=== PATIENT | female | born 1955 | race Caucasian/White ===

== ENCOUNTER 2018-10-12 08:57 | Inpatient (IN) | payer OTHER ==
[2018-10-12] MEDS ORDERED: ONDANSETRON 4 MG/2 ML VIAL ONE (09:12)
[2018-10-12] MEDS ORDERED: NITROGLYCERIN 0.4 MG/TAB SL ONE (09:15)
[2018-10-12] MEDS ORDERED: NITROGLYCERIN/D5W 0 MG/0 ML BTL IV ONE (09:15)
[2018-10-12 09:19] LABS: Absolute Lymphocytes (CBC) 4.2 K/uL (0.7-4.9); Absolute Monocytes 0.6 K/uL (0.1-1.3); Absolute Neutrophil 6.5 K/uL (1.8-8.0); Basophils % 2.2 % (0-1.3); Hematocrit 44.1 % (36.0-45.0); Lymphocytes % 35.5 % (15.3-44.8); MPV 8.6 fL (7.6-11.3); Monocytes % 5.3 % (3.3-12.3)
[2018-10-12 09:23] LABS: Arterial Blood Carboxyhemoglob 6.8 % (0-1.5); Blood Gas Oxyhemoglobin 83.8 % (94-97)
[2018-10-12] MEDS ORDERED: FUROSEMIDE 20 MG/ 2ML VIAL ONE (09:25)
[2018-10-12] MEDS ORDERED: FUROSEMIDE 40 MG/4 ML VIAL ONE (09:25)
[2018-10-12 09:26] LABS: Protime INR 0.92
[2018-10-12 09:43] LABS: ALT/SGPT 23 U/L (12-78); AST/SGOT 26 U/L (15-37); Albumin 4.2 g/dL (3.4-5.0); Alkaline Phosphatase 220 U/L (45-117); BUN Blood Urea Nitrogen 6 mg/dL (7-18); Bicarbonate 25 mmol/L (21-32); Bilirubin Direct 0.3 mg/dL (0-0.2); Bilirubin Total 1.3 mg/dL (0.2-1.0); Glucose Level 361 mg/dL (74-106); Magnesium 2.2 mg/dL (1.8-2.4); NT PRO-BNP 354 pg/mL (<125); Potassium 3.4 mmol/L (3.5-5.1); Protein, Total 8.8 g/dL (6.4-8.2); Sodium Level 135 mmol/L (136-145); Troponin (Emerg Dept Use Only) < 0.02 ng/mL (0.0-0.045)
[2018-10-12] MEDS ORDERED: INSULIN -REGULAR HUMAN 50 UNIT/0.5 ML ML ONE (10:22)
--- NOTE | 2018-10-12 10:43 | EKG ---
Test Date: 2018-10-12 Test Time: 08:58:42 Telecom Analyst: ELOY MEASUREMENT RESULTS: Intervals: Rate: 135 MS: 104 QRSD: 82 QT: 374 QTc: 561 [place]: P: MS: 104 QRS: 17 T: 57 INTERPRETIVE STATEMENTS: Sinus tachycardia with short MS ST & T wave abnormality, consider lateral ischemia Abnormal ECG Compared to ECG 06/04/2015 04:02:11 Short MS interval now present Myocardial infarct finding no longer present ST (T wave) deviation still present Possible ischemia still present Electronically Signed On 10-12-18 10:42:41 MARKER [employer]IPMENTS by Rj Roman
--- NOTE | 2018-10-12 10:56 | EDPHYS ---
Physician Documentation [facility] Name: Brie Chiang Age: 63 yrs Sex: Female : 1955 Arrival Date: 10/12/2018 Time: 09:00 Bed 5 Private MD: ED Physician Vitaliy Matthews HPI: 10/12 10:38 This 63 yrs old Female presents to ER via Wheelchair with complaints of Chest jr8 Pain. 10:38 Onset: The symptoms/episode began/occurred acutely. The patient or guardian reports jr8 chest pain that is located primarily in the substernal area. The pain does not radiate. Associated signs and symptoms: Pertinent positives: diaphoresis, vomiting, shortness of breath. Severity of symptoms: At their worst the symptoms were severe in the emergency department the symptoms are unchanged. It is unknown whether or not the patient has had similar symptoms in the past. The patient has not recently seen a physician. Patient had to be assisted from vehicle upon arrival. Patient in respiratory distress and complaining of pain to chest . Historical: - Allergies: 09:13 Niacin; iw 09:13 Iodine; iw 09:13 Codeine; iw - Home Meds: 10:40 Digoxin Oral [Active]; carvedilol oral oral [Active]; Isosorbide Mononitrate Oral aa5 [Active]; Plavix Oral [Active]; levothyroxine oral [Active]; Furosemide Oral [Active]; - PMHx: 09:15 CHF; Myocardial infarction; Diabetes - IDDM; iw - Immunization history:: Pneumococcal vaccine is up to date, Flu vaccine is not up to date. - Ebola Screening: : Patient negative for fever greater than or equal to 101.5 degrees Fahrenheit, and additional compatible Ebola Virus Disease symptoms Patient denies exposure to infectious person Patient denies travel to an Ebola-affected area in the 21 days before illness onset No symptoms or risks identified at this time. - Social history:: Smoking status: Patient uses tobacco products, smokes one pack cigarettes per day. ROS: 10:38 Eyes: Negative for injury, pain, redness, and discharge, ENT: Negative for injury, jr8 pain, and discharge, Neck: Negative for injury, pain, and swelling, Abdomen/GI: Negative for abdominal pain, nausea, vomiting, diarrhea, and constipation, Back: Negative for injury and pain, MS/Extremity: Negative for injury and deformity, Skin: Negative for injury, rash, and discoloration, Neuro: Negative for headache, weakness, numbness, tingling, and seizure. 10:38 Cardiovascular: Positive for chest pain, Negative for edema, orthopnea, palpitations, paroxysmal nocturnal dyspnea. 10:38 Respiratory: Positive for dyspnea on exertion, shortness of breath. Exam: 10:38 Eyes: Pupils equal round and reactive to light, extra-ocular motions intact. Lids and jr8 lashes normal. Conjunctiva and sclera are non-icteric and not injected. Cornea within normal limits. Periorbital areas with no swelling, redness, or edema. ENT: Nares patent. No nasal discharge, no septal abnormalities noted. Tympanic membranes are normal and external auditory canals are clear. Oropharynx with no redness, swelling, or masses, exudates, or evidence of obstruction, uvula midline. Mucous membranes moist. Neck: Trachea midline, no thyromegaly or masses palpated, and no cervical lymphadenopathy. Supple, full range of motion without nuchal rigidity, or vertebral point tenderness. No Meningismus. Abdomen/GI: Soft, non-tender, with normal bowel sounds. No distension or tympany. No guarding or rebound. No evidence of tenderness throughout. Back: No spinal tenderness. No costovertebral tenderness. Full range of motion. MS/ Extremity: Pulses equal, no cyanosis. Neurovascular intact. Full, normal range of motion. Neuro: Awake and alert, GCS 15, oriented to person, place, time, and situation. Cranial nerves II-XII grossly intact. Motor strength 5/5 in all extremities. Sensory grossly intact. Cerebellar exam normal. Normal gait. 10:38 Constitutional: The patient appears alert, awake, obviously ill. 10:38 Cardiovascular: Rate: tachycardic, Rhythm: regular, Pulses: Pulses are 2+ in right radial artery and left radial artery. Heart sounds: normal, normal S1and S2, no S3 or S4, no murmur, no rub, no gallop, Edema: is not appreciated. 10:38 Respiratory: moderate respiratory distress is noted, Respirations: tachypnea, Breath sounds: rales, that are moderate, are heard in the right upper lobe, right middle lobe, right posterior upper lobe and right posterior middle lobe, Respiratory rate: 26 10:38 Skin: Appearance: Color: dusky, Temperature: cool, Moisture: diaphoretic. Vital Signs: 09:00 BP 181 / 117; Pulse 133; Resp 30 S; Pulse Ox 80% on R/A; iw 09:03 BP 156 / 92; Pulse 128; Resp 30 S; Temp 97.2(TE); Pulse Ox 89% on 4 lpm NC; aa5 09:08 BP 118 / 72; Pulse 128; Resp 28 S; Pulse Ox 92% on BiPAP; aa5 09:25 BP 117 / 76; Pulse 118; Resp 26 A; Pulse Ox 95% on BiPAP; aa5 09:45 BP 124 / 72; Pulse 103; Resp 19; Pulse Ox 100% on BiPAP; ca1 10:15 BP 124 / 72; Pulse 100; Resp 16; Pulse Ox 100% on BiPAP; ca1 10:45 BP 92 / 56; Pulse 97; Resp 19; Pulse Ox 100% on BiPAP; ca1 10:49 Weight 77.11 kg; Height 5 ft. 6 in. (167.64 cm); ca1 11:15 BP 89 / 63; Pulse 100; Resp 18; Pulse Ox 100% on BiPAP; ca1 12:30 BP 143 / 64; Pulse 88; Resp 18; Pulse Ox 100% on BiPAP; ca1 13:00 BP 131 / 60; Pulse 90; Resp 19; Pulse Ox 100% on Non-rebreather mask; ca1 13:30 BP 128 / 65; Pulse 87; Resp 18; Pulse Ox 100% on 2 lpm NC; ca1 14:00 BP 120 / 59; Pulse 84; Resp 18; Pulse Ox 100% on 2 lpm NC; ca1 14:45 BP 124 / 65; Pulse 84; Resp 18; Pulse Ox 100% on R/A; ca1 14:45 BP 115 / 71; Pulse 96; Resp 18; Pulse Ox 100% on 2 lpm NC; ca1 10:49 Body Mass Index 27.44 (77.11 kg, 167.64 cm) ca1 MDM: 09:11 Patient medically screened. jr8 10:38 Data reviewed: vital signs, nurses notes, lab test result(s), EKG, radiologic studies, jr8 CT scan, plain films. Data interpreted: Pulse oximetry: on room air is 80 %. Interpretation: hypoxia. Plan: O2 by Mask applied. Counseling: I had a detailed discussion with the patient and/or guardijean marie regarding: the historical points, exam findings, and any diagnostic results supporting the discharge/admit diagnosis, lab results, radiology results, the need for further work-up and treatment in the hospital. ED course: Discussed case with Dr. Kaplan and will be admitted to ICU for further evaluation of pneumonia and acute respiratory failure . 10/12 09:05 Order name: Basic Metabolic Panel; Complete Time: 10:20 iw 10/12 09:05 Order name: CBC with Diff; Complete Time: 10:20 10/12 09:05 Order name: LFT's; Complete Time: 10:10/12 09:05 Order name: Magnesium; Complete Time: 10:10/12 09:05 Order name: NT PRO-BNP; Complete Time: 10:10/12 09:05 Order name: PT-INR; Complete Time: 10: 10/12 09:05 Order name: Troponin (emerg Dept Use Only); Complete Time: 10: 10/12 09:12 Order name: ABG; Complete Time: 10: 10/12 09:13 Order name: Glucose, Ancillary Testing; Complete Time: 09:15 EDMS 10/12 10:02 Order name: Urine Dipstick--Ancillary (enter results); Complete Time: 11:37 eb 10/12 10:23 Order name: Blood Culture Adult (2) 10/12 10:23 Order name: Lactate; Complete Time: 11:28 10/12 10:23 Order name: Procalcitonin; Complete Time: 12:21 [facility] 10/12 11:13 Order name: Ptt, Activated; Complete Time: 11:50 ca1 10/12 09:05 Order name: XRAY Chest (1 view); Complete Time: 11:18 iw 10/12 09:12 Order name: BIPAP 10/12 10:57 Order name: Echo w/ Doppler 10/12 11:00 Order name: US Extremity Venous W Compression Aroldo; Complete Time: 13:10 10/12 12:28 Order name: CT Chest Wo Con; Complete Time: 13:21 10/12 14:35 Order name: Lactate aa5 10/12 15:04 Order name: Glucose, Ancillary Testing; Complete Time: 15:06 EDMS 10/12 15:04 Order name: Glucose, Ancillary Testing; Complete Time: 15:06 EDMS 10/12 15:32 Order name: Urine Microscopic Only eb 10/12 15:53 Order name: Lactate; Complete Time: 15:55 EDMS 10/12 09:05 Order name: EKG; Complete Time: 09:07 iw 10/12 09:05 Order name: Cardiac monitoring; Complete Time: 09:16 iw 10/12 09:05 Order name: EKG - Nurse/Tech; Complete Time: 09:16 iw 10/12 09:05 Order name: IV Saline Lock; Complete Time: 09:16 iw 10/12 09:05 Order name: Labs collected and sent; Complete Time: 09:16 iw 10/12 09:05 Order name: O2 Per Protocol; Complete Time: 09:16 iw 10/12 09:05 Order name: O2 Sat Monitoring; Complete Time: 09:16 iw 10/12 13:48 Order name: Diet Ada 1800 Roni; Complete Time: 13:49 iw Administered Medications: 09:00 Drug: Zofran 4 mg {Note: administered by JOSSELYN Saleh} Route: IVP; Site: right aa5 antecubital; 18:44 Follow up: Response: No adverse reaction; Nausea is decreased ca1 09:03 Drug: Nitroglycerin 0.4 mg {Note: VO received at 0901.} Route: Sublingual; [facility] 11:00 Follow up: Response: No adverse reaction; Pain is decreased ca1 09:25 Drug: Lasix 60 mg Route: IVP; Site: right antecubital; ca1 18:45 Follow up: Urine output 1900 ml; Response: No adverse reaction ca1 10:15 Drug: Insulin Regular Human 10 units {Co-Signature: ca1 (Edith Portillo RN).} Route: IVP; aa5 Site: right antecubital; 13:00 Follow up: Response: No adverse reaction; Blood sugar is lowered ca1 11:20 Drug: NS 0.9% (30 ml/kg) 30 ml/kg Route: IV; Rate: bolus; Site: right antecubital; ca1 15:00 Follow up: IV Status: Completed infusion ca1 11:22 Drug: LevaQUIN 750 mg Volume: 150 ml; Route: IVPB; Infused Over: 90 mins; Site: right ca1 antecubital; 13:00 Follow up: Response: No adverse reaction; IV Status: Completed infusion ca1 11:40 Drug: Heparin (DVT/PE- Bolus per protocol) - HEParin 80 units/kg {Co-Signature: aa5 ca1 (Linsey Sanders RN).} Route: IVP; Site: left antecubital; 18:39 Follow up: Response: No adverse reaction ca1 11:42 Drug: Heparin (DVT/PE Drip) 18 units/kg/hr - (HEParin 60665 units, D5W 500 ml) ca1 {Co-Signature: aa5 (Linsey Sanders RN).} Route: IV; Rate: calculated rate; Site: left antecubital; 15:00 Follow up: IV Status: Infusion continued upon admission ca1 12:00 Drug: Valium 2 mg Route: IVP; Site: right antecubital; ca1 15:47 Follow up: Response: No adverse reaction; Anxiety decreased ca1 Point of Care Testing: Blood Glucose: 10:47 Blood Glucose: 349 mg/dL; dh3 15:00 Blood Glucose: 286 mg/dL; ca1 Ranges: Critical Glucose Levels:Adult <50 mg/dl or >400 mg/dl <40 mg/dl or >180 mg/dl Disposition: 14:14 Critical Care:. jr8 19:04 Co-signature as Attending Physician, Vitaliy Matthews MD I agree with the assessment and kdr plan of care. Disposition: 10/12/18 10:55 Hospitalization ordered by Edouard Kaplan for Inpatient Admission. Preliminary diagnosis are Acute systolic (congestive) heart failure, Pneumonia due to other specified bacteria, Acute respiratory failure, Hypoxemia. - Bed requested for Intensive Care Unit. - Status is Inpatient Admission. iw - Condition is Fair. - Problem is new. - Symptoms have improved. UTI on Admission? No Critical care time excluding procedures: 14:14 Critical care time: Bedside Care: 20 minutes, Consultation: 15 minutes. Total time: 35 jr8 minutes Signatures: Dispatcher [employer] EDMS Vitaliy Matthews MD MD [facility] Aviva Pacheco RN RN iw Linsey Sanders RN RN aa5 Carlos Delgado PA PA jr8 Juliette Mcknight Cheryl, RN RN ca1 Edith Portillo RN ca1 Linsey Sanders RN aa5 Corrections: (The following items were deleted from the chart) 10:59 10:54 Thorax Wo Con+CT.RAD.BRZ ordered. [facility] EDMS 11:08 10:26 Chest For PE Angio+CT.RAD.BRZ ordered. [facility] EDMS 13:59 10:55 Hospitalization Ordered by Edouard Kaplan DO for Inpatient Admission. Preliminary eb diagnosis is Acute systolic (congestive) heart failure; Pneumonia due to other specified bacteria; Acute respiratory failure; Hypoxemia. Bed requested for Intensive Care Unit. Status is Inpatient Admission. Condition is Fair. Problem is new. Symptoms have improved. UTI on Admission? No. jr8 16:38 13:59 10/12/2018 10:55 Hospitalization Ordered by Edouard Kaplan DO for Inpatient iw Admission. Preliminary diagnosis is Acute systolic (congestive) heart failure; Pneumonia due to other specified bacteria; Acute respiratory failure; Hypoxemia. Bed requested for Intensive Care Unit. Status is Inpatient Admission. Condition is Fair. Problem is new. Symptoms have improved. UTI on Admission? No. eb
--- NOTE | 2018-10-12 10:56 | ER ---
Nurse's Notes [facility] Name: Brie Chiang Age: 63 yrs Sex: Female : 1955 Arrival Date: 10/12/2018 Time: 09:00 Bed 5 Private MD: Diagnosis: Acute systolic (congestive) heart failure;Pneumonia due to other specified bacteria;Acute respiratory failure;Hypoxemia Presentation: 10/12 08:55 Presenting complaint: Patient states: sudden onset of chest pain and SOB X 10 minutes, iw pt arrives to ER, pale, diaphoretic, TX=603, 80% on RA. Transition of care: patient was not received from another setting of care. Onset of symptoms was October 12, 2018. Risk Assessment: Do you want to hurt yourself or someone else? Patient reports no desire to harm self or others. Initial Sepsis Screen: Does the patient meet any 2 criteria? RR > 20 per min. HR > 90 bpm. Does the patient have a suspected source of infection? No. Patient's initial sepsis screen is negative. Care prior to arrival: None. 08:55 Method Of Arrival: Wheelchair iw 08:55 Acuity: SUSSY 1 iw Historical: - Allergies: 09:13 Niacin; iw 09:13 Iodine; iw 09:13 Codeine; iw - Home Meds: 10:40 Digoxin Oral [Active]; carvedilol oral oral [Active]; Isosorbide Mononitrate Oral aa5 [Active]; Plavix Oral [Active]; levothyroxine oral [Active]; Furosemide Oral [Active]; - PMHx: 09:15 CHF; Myocardial infarction; Diabetes - IDDM; iw - Immunization history:: Pneumococcal vaccine is up to date, Flu vaccine is not up to date. - Ebola Screening: : Patient negative for fever greater than or equal to 101.5 degrees Fahrenheit, and additional compatible Ebola Virus Disease symptoms Patient denies exposure to infectious person Patient denies travel to an Ebola-affected area in the 21 days before illness onset No symptoms or risks identified at this time. - Social history:: Smoking status: Patient uses tobacco products, smokes one pack cigarettes per day. Screenin:15 Abuse screen: Denies threats or abuse. Denies injuries from another. Nutritional ca1 screening: No deficits noted. Tuberculosis screening: No symptoms or risk factors identified. Fall Risk None identified. Assessment: 09:00 General: Appears distressed, comfortable, Behavior is calm, cooperative, appropriate ca1 for age. Pain: Complains of pain in chest Pain does not radiate. Pain currently is 9 out of 10 on a pain scale. Pain began 30 min ago. Neuro: Level of Consciousness is awake, alert, obeys commands, Oriented to person, place, time, situation. Cardiovascular: Heart tones S1 S2 present Capillary refill is > 3 seconds Rhythm is sinus tachycardia. Respiratory: Reports shortness of breath Airway is patent Trachea midline Respiratory effort is even, labored, Respiratory pattern is hyperventilation Breath sounds are coarse in right middle lobe Breath sounds are diminished in left upper lobe Denies cough. GI: Abdomen is round non-distended, Bowel sounds present X 4 quads. Abd is soft and non tender X 4 quads. Reports nausea. : No signs and/or symptoms were reported regarding the genitourinary system. EENT: No signs and/or symptoms were reported regarding the EENT system. Derm: Skin is intact, Skin is diaphoretic, Skin is pale, Skin temperature is cool. Musculoskeletal: Circulation, motion, and sensation intact. 09:04 Reassessment: Pt placed on Bi-PAP by RT per JOSSELYN Tejada VO. aa5 10:05 Reassessment:. Reassessment: Patient appears in no apparent distress at this time. ca1 Patient and/or family updated on plan of care and expected duration. Pain level reassessed. Derm: Skin is pink, warm \T\ dry. 10:15 Reassessment: Instructed on Strict Bed rest. ca1 11:50 Reassessment: US at bedside. Reassessment:. ca1 12:55 Reassessment: Patient appears in no apparent distress at this time. To CT scan with ca1 Non-rebreather mask, Tolerated well, states feeling better. Off Bipap, RT and PA informed, pt tolerated well. 13:33 Reassessment: Patient appears in no apparent distress at this time. Patient and/or ca1 family updated on plan of care and expected duration. Pain level reassessed. Patient is alert, oriented x 3, equal unlabored respirations, skin warm/dry/pink. Patient on O2 at 2LPM via NC, patient tolerated well. Expressed feeling better. 14:31 Reassessment: Patient appears in no apparent distress at this time. Patient and/or ca1 family updated on plan of care and expected duration. Pain level reassessed. Patient is alert, oriented x 3, equal unlabored respirations, skin warm/dry/pink. 15:35 Reassessment: Patient appears in no apparent distress at this time. Patient is alert, ca1 oriented x 3, equal unlabored respirations, skin warm/dry/pink. Patient eating on bed. Vital Signs: 09:00 BP 181 / 117; Pulse 133; Resp 30 S; Pulse Ox 80% on R/A; iw 09:03 BP 156 / 92; Pulse 128; Resp 30 S; Temp 97.2(TE); Pulse Ox 89% on 4 lpm NC; aa5 09:08 BP 118 / 72; Pulse 128; Resp 28 S; Pulse Ox 92% on BiPAP; aa5 09:25 BP 117 / 76; Pulse 118; Resp 26 A; Pulse Ox 95% on BiPAP; aa5 09:45 BP 124 / 72; Pulse 103; Resp 19; Pulse Ox 100% on BiPAP; ca1 10:15 BP 124 / 72; Pulse 100; Resp 16; Pulse Ox 100% on BiPAP; ca1 10:45 BP 92 / 56; Pulse 97; Resp 19; Pulse Ox 100% on BiPAP; ca1 10:49 Weight 77.11 kg; Height 5 ft. 6 in. (167.64 cm); ca1 11:15 BP 89 / 63; Pulse 100; Resp 18; Pulse Ox 100% on BiPAP; ca1 12:30 BP 143 / 64; Pulse 88; Resp 18; Pulse Ox 100% on BiPAP; ca1 13:00 BP 131 / 60; Pulse 90; Resp 19; Pulse Ox 100% on Non-rebreather mask; ca1 13:30 BP 128 / 65; Pulse 87; Resp 18; Pulse Ox 100% on 2 lpm NC; ca1 14:00 BP 120 / 59; Pulse 84; Resp 18; Pulse Ox 100% on 2 lpm NC; ca1 14:45 BP 124 / 65; Pulse 84; Resp 18; Pulse Ox 100% on R/A; ca1 14:45 BP 115 / 71; Pulse 96; Resp 18; Pulse Ox 100% on 2 lpm NC; ca1 10:49 Body Mass Index 27.44 (77.11 kg, 167.64 cm) ca1 ED Course: 09:00 Patient arrived in ED. aa5 09:00 Inserted saline lock: 20 gauge in right antecubital area, using aseptic technique. aa5 ,using aseptic technique. Inserted by JOSSELYN Saleh. 09:04 Triage completed. iw 09:05 Initial lab(s) drawn, by ED staff, sent to lab. aa5 09:11 Carlos Delgado PA is PHCP. jr8 09:11 Vitaliy Matthews MD is Attending Physician. jr8 09:15 Arm band placed on right wrist. ca1 09:17 Patient has correct armband on for positive identification. Placed in gown. Bed in low iw position. Call light in reach. Side rails up X2. cable maker on. Pulse ox on. NIBP on. 09:20 Warm blanket given. Head of bed elevated. ca1 09:24 EKG done, by ED staff, reviewed by Carlos ARCOS. at1 09:28 Edith Portillo RN is Primary Nurse. ca1 09:50 Caldwell cath inserted, using sterile technique, 16 Fr., by me, balloon inflated, to ca1 gravity drainage, clamped. urine specimen collected. returned rebeca urine. Patient tolerated well. 10:06 X-ray completed. Portable x-ray completed in exam room. Patient tolerated procedure jb2 well. 10:08 XRAY Chest (1 view) In Process Unspecified. EDMS 10:45 lactate and pct drawn by me and sent to lab by venipuncture 23G to right forearm. dh3 Second set of blood cultures drawn by me. 10:55 Edouard Kaplan DO is Hospitalizing Provider. jr8 12:26 US Extremity Venous W Compression Aroldo In Process Unspecified. EDMS 12:57 CT Chest Wo Con In Process Unspecified. EDMS 15:56 No provider procedures requiring assistance completed. Patient admitted, IV remains in ca1 place. Oxygen administration via nasal cannula \T\ 2L/min Response to oxygen therapy: symptoms improved. Administered Medications: 09:00 Drug: Zofran 4 mg {Note: administered by JOSSELYN Saleh .} Route: IVP; Site: right aa5 antecubital; 18:44 Follow up: Response: No adverse reaction; Nausea is decreased ca1 09:03 Drug: Nitroglycerin 0.4 mg {Note: VO received at 0901.} Route: Sublingual; aa5 11:00 Follow up: Response: No adverse reaction; Pain is decreased ca1 09:25 Drug: Lasix 60 mg Route: IVP; Site: right antecubital; ca1 18:45 Follow up: Urine output 1900 ml; Response: No adverse reaction ca1 10:15 Drug: Insulin Regular Human 10 units {Co-Signature: ca1 (Edith Portlilo RN).} Route: IVP; aa5 Site: right antecubital; 13:00 Follow up: Response: No adverse reaction; Blood sugar is lowered ca1 11:20 Drug: NS 0.9% (30 ml/kg) 30 ml/kg Route: IV; Rate: bolus; Site: right antecubital; ca1 15:00 Follow up: IV Status: Completed infusion ca1 11:22 Drug: LevaQUIN 750 mg Volume: 150 ml; Route: IVPB; Infused Over: 90 mins; Site: right ca1 antecubital; 13:00 Follow up: Response: No adverse reaction; IV Status: Completed infusion ca1 11:40 Drug: Heparin (DVT/PE- Bolus per protocol) - HEParin 80 units/kg {Co-Signature: aa5 ca1 (Linsey Sanders RN).} Route: IVP; Site: left antecubital; 18:39 Follow up: Response: No adverse reaction ca1 11:42 Drug: Heparin (DVT/PE Drip) 18 units/kg/hr - (HEParin 52941 units, D5W 500 ml) ca1 {Co-Signature: aa5 (Linsey Sanders RN).} Route: IV; Rate: calculated rate; Site: left antecubital; 15:00 Follow up: IV Status: Infusion continued upon admission ca1 12:00 Drug: Valium 2 mg Route: IVP; Site: right antecubital; ca1 15:47 Follow up: Response: No adverse reaction; Anxiety decreased ca1 Point of Care Testing: Blood Glucose: 10:47 Blood Glucose: 349 mg/dL; dh3 15:00 Blood Glucose: 286 mg/dL; ca1 Ranges: Output: 15:54 Urine: 1900ml (Caldwell); Total: 1900ml. ca1 18:45 Urine: 1900ml; Total: 3800ml. ca1 Outcome: 10:55 Decision to Hospitalize by Provider. jr8 15:56 Admitted to ICU accompanied by nurse, accompanied by tech, via stretcher, room #1 , [facility] with oxygen, on monitor, with chart, Report called to Bridget Contreras RN 15:56 Condition: stable 15:56 Instructed on the need for admit, Demonstrated understanding of instructions. 16:38 Patient left the ED. Signatures: Dispatcher [employer] EDMS Alberta Anthony jb2 Aviva Pacheco RN RN Linsey Sanders RN RN aa5 Carlos Delgado, PA PA jr8 Avis Stewart, crnp EKG Tat1 Chasity Mandel [facility] Edith Portillo RN RN ca1 Edith Portillo RN ca1 Linsey Sanders RN aa5 Corrections: (The following items were deleted from the chart) 09:28 09:13 BP 118 / 72; Pulse 128bpm; Resp 28bpm; Spontaneous; Pulse Ox 92% BiPAP; [facility] 10:57 10:47 Blood Glucose: Blood Glucose Tuqhxhl=552 mg/dL. [place] [id number] 10:57 10:56 Blood Glucose: Blood Glucose Zydccrh=772 mg/dL. [place] [id number] 13:37 12:45 Reassessment: Patient appears in no apparent distress at this time. To CT scan ca1 with Non-rebreather mask, Tolerated well, states feeling better. [facility] 13:45 09:45 BP 130 / 74; Pulse 100bpm; Resp 16bpm; Pulse Ox 100% BiPAP; ca1 ca1 18:39 10:05 Reassessment: Patient appears in no apparent distress at this time. Patient ca1 and/or family updated on plan of care and expected duration. Pain level reassessed. ca1 18:39 13:33 Reassessment: Patient appears in no apparent distress at this time. Patient ca1 and/or family updated on plan of care and expected duration. Pain level reassessed. Patient is alert, oriented x 3, equal unlabored respirations, skin warm/dry/pink. Patient on O2 at 2LPM with NC. Expressed feeling better. ca1 18:39 12:55 Reassessment: Patient appears in no apparent distress at this time. To CT scan ca1 with Non-rebreather mask, Tolerated well, states feeling better. ca1
--- NOTE | 2018-10-12 11:03 | RAD REPORT ---
EXAM DESCRIPTION: RAD - Chest Single View - 10/12/2018 10:18 am CLINICAL HISTORY: Chest pain, shortness of breath COMPARISON: May 2015 TECHNIQUE: AP portable chest image was obtained 1005 hours . FINDINGS: Lung volumes are normal. Interstitial and alveolar opacification is present in the lower r ight lung field with suspicion for focal 3- 4 centimeter mass density within this abnormal lung paren chyma. Left lung base markings are prominent. No focal left consolidations seen. Heart and vasculatur e are normal. No measurable pleural effusion and no pneumothorax. No acute bony abnormality seen. No acute aortic findings suspected. IMPRESSION: Masslike density in the lower right lung field with surrounding interstitial and alveola r opacification. In the acute clinical setting findings are probably still related to pneumonia. Malignancy is not exc luded and follow-up CT chest imaging is recommended.
[2018-10-12] MEDS ORDERED: NA CHLORIDE 0.9% 2,000 ML ONE (11:27)
[2018-10-12] MEDS ORDERED: Levofloxacin 750mg IV 750 MG/150 ML BAG IV ONE (11:27)
[2018-10-12] MEDS ORDERED: HEPARIN/D5W 25,000 UNIT/500 ML BAG IV ONE (11:28)
[2018-10-12] MEDS ORDERED: HEPARIN 5000 UNIT/ML 1 ML VIAL ONE (11:28)
[2018-10-12 11:33] LABS: Urine Blood TRACE (NEG); Urine Glucose 2+ (NEG); Urine Protein 2+ (NEG); Urine pH 5.5 (5.0-7.0)
[2018-10-12] MEDS ORDERED: DIAZEPAM 10 MG/2 ML INJ SYRINGE ONE (12:35)
--- NOTE | 2018-10-12 13:05 | RAD REPORT ---
EXAM DESCRIPTION: US - Extrem Venous W Compress Aroldo - 10/12/2018 12:21 pm CLINICAL HISTORY: Leg pain and swelling COMPARISON: None. TECHNIQUE: Real-time sonographic evaluation of the bilateral lower extremity common femoral, superfi cial femoral, popliteal and posterior tibial veins was performed. FINDINGS: Normal compressibility, flow augmentation, phasic flow and spontaneous flow are identified in the left and right lower extremity common femoral, superficial femoral, popliteal and posterior t ibial veins. No intraluminal filling defects seen. IMPRESSION: No DVT in either lower extremity.
--- NOTE | 2018-10-12 13:13 | RAD REPORT ---
EXAM DESCRIPTION: CT - Thorax Wo Con - 10/12/2018 12:54 pm CLINICAL HISTORY: Acute onset shortness of breath, chest pain history of CHF COMPARISON: Chest film same date, CT chest 2006 TECHNIQUE: Axial 5 mm thick images of the chest were obtained without IV contrast. All CT scans are performed using dose optimization technique as appropriate and may include automated exposure control or mA/KV adjustment according to patient size. FINDINGS: Interstitial alveolar opacification is scattered through most of the right lower lobe. No cavitation. No mass density seen. The oval mass density lower right lung field on the chest film is b elieved to be summation of the right lower lobe findings and overlying chest structures. Trace amount of ground-glass opacification seen in the anterior aspects of the right upper and right middle lobes . There is minimal interstitial opacification in the posterior gutter on the left. No pleural thicken ing or pleural effusion. No pneumothorax. A few small nonspecific mediastinal lymph nodes are present. These are not substantially different fr om the 2007 CT study. No gross aortic or pulmonary artery finding suspected. Assessment is limited i n the absence of IV contrast. No pericardial thickening or effusion. No chest wall mass or abnormal axillary lymphadenopathy. IMPRESSION: Noncontrast study showing interstitial and alveolar opacification scattered throughout m ost of the right lower lobe. Pneumonia is the most likely etiology. Minimal pneumonia or alveolitis changes in the anterior right middle and right upper lobes. Nonspecific mediastinal lymph nodes most likely reactive and not substantially different from 2007. Pulmonary embolism and other vascular abnormalities cannot be assessed on noncontrast imaging.
--- NOTE | 2018-10-12 13:59 | P.HP ---
Certification for Inpatient Patient admitted to: Inpatient With expected LOS: >2 Midnights Patient will require the following post-hospital care: None Practitioner: I am a practitioner with admitting privileges, knowledge of patient current condition, hospital course, and medical plan of care. Services: Services provided to patient in accordance with Admission requirements found in Title 42 Section 412.3 of the Code of Federal Regulations Patient History Date of Service: 10/12/18 Primary Care Provider: Dr. Valiente; Cardiology-Dr. Kyle Reason for admission: Shortness of breath History of Present Illness: 63-year-old female presented to the emergency room with shortness of breath. Patient presented to the ER with shortness of breath. I actually saw the patient in the ER parking lot. She was complaining of shortness of breath at that time. She had some nausea. She appeared diaphoretic. ER was called. The patient was assessed in the emergency room. In my conversation with the patient she mentioned history of diabetes, heart disease and possible COPD. She is a smoker. In the ER patient evaluated patient. She appeared diaphoretic, tachypneic and hypoxic. Room-air saturations were 80%. Patient was given nitroglycerin and Lasix. BiPAP was initiated. Sepsis assessment was done by the ER. Sepsis protocol initiated. Patient was given IV Levaquin and fluid boluses. Initial white count 11.8. Lactic acid 3.3. Pro calcitonin unremarkable. Troponin unremarkable. BNP 350. Sodium 138, potassium 3.4, BUN of 6, creatinine 1.0 with a GFR 50. Glucose elevated at 360. Initial chest x-ray showed right-sided pneumonia. Venous Doppler of the lower extremity unremarkable for DVT. CT scan done without contrast shows a large right pneumonia. Patient was stabilize in the emergency room. I was asked to admit the patient. And saw the patient ER, she was still on BiPAP. She appeared much improved since I last saw her in the parking lot. She reported increasing shortness of breath today. Patient does smoke regularly. She does not drink alcohol. She is seen by cardiology as an outpatient. She drove herself to the emergency room due to shortness of breath. Allergies codeine [Codeine] Allergy (Severe, Verified 01/07/12 11:47) unknown iodine [Iodine] Allergy (Unknown, Verified 01/07/12 11:47) Hives niacin [Niacin] Allergy (Unknown, Verified 01/07/12 11:48) Hives/Rash IODINE; IODINE CONTAINING Allergy (Uncoded 06/06/15 21:19) Unknown Home medications list reviewed: Yes Home Medications: Atorvastatin Calcium [Lipitor*] 20 mg PO DAILY 06/04/15 Carvedilol [Coreg*] 25 mg PO BID 06/04/15 Clopidogrel Bisulfate [Plavix] 75 mg PO DAILY 06/04/15 Digoxin [Lanoxin*] 0.125 mg PO DAILY 06/04/15 Isosorbide Mononitrate [Ismo] 20 mg PO BID 06/04/15 Levothyroxine [Synthroid*] 175 mcg PO DAILY 06/04/15 Losartan Potassium [Cozaar] 100 mg PO DAILY 06/04/15 Furosemide [Lasix] 40 mg PO DAILY #30 tablet 06/05/15 - Past Medical/Surgical History Diabetic: Yes -: CAD -: CHF likely diastolic dysfunction -: Diabetes mellitus type 2 -: Hypertension -: COPD -: Tobacco abuse -: Obesity -: Hyperlipidemia -: Suspect obstructive sleep apnea -: Cholecystectomy -: Appendectomy -: Hysterectomy Psychosocial/ Personal History: Patient is single. She has 1 child. - Family History Family History: Reviewed- Non-Contributory - Social History Smoking Status: Heavy Tobacco smoker (>10 cigarettes/day) Counseled patient to stop smoking for: less than 10 minutes Smoking therapy provided: Yes Patient receptive to therapy: Yes Alcohol use: No CD- Drugs: No Caffeine use: Yes Place of Residence: Home Review of Systems General: Weakness, Malaise, As per HPI Eyes: Unremarkable ENT: Nose Congestion, As per HPI Respiratory: Cough, Shortness of Breath, SOB with Excertion, As per HPI Cardiovascular: Chest Pain, Light Headedness, As per HPI Gastrointestinal: Nausea, As per HPI Genitourinary: Unremarkable Musculoskeletal: As per HPI Integumentary: Unremarkable Neurological: As per HPI Lymphatics: Unremarkable Physical Examination - Physical Exam General: Alert, In no apparent distress, Oriented x3, Cooperative, Other (BiPAP in place) HEENT: Atraumatic, Normocephalic, Other (Dry mucous membranes) Neck: Supple Respiratory: Diminished (Diminished to the right side) Cardiovascular: Abnormal pulses (Mild sinus tachycardia) Gastrointestinal: Normal bowel sounds, Soft and benign, Non-distended, No tenderness, No masses, No rebound, No guarding Musculoskeletal: No tenderness, No warmth Integumentary: No tenderness/swelling (No significant peripheral edema), No erythema, No warmth, No cyanosis Neurological: Normal speech, Normal strength at 5/5 x4 extr, Normal tone, Normal affect - Studies Laboratory Data (last 24 hrs) 10/12/18 11:30: APTT 28.5 10/12/18 09:06: PT 10.8, INR 0.92 10/12/18 09:06: WBC 11.8 H, Hgb 14.6, Hct 44.1, Plt Count 325 10/12/18 09:06: Sodium 135 L, Potassium 3.4 L, BUN 6 L, Creatinine 1.10, Glucose 361 H, Magnesium 2.2, Total Bilirubin 1.3 H, AST 26, ALT 23, Alkaline Phosphatase 220 H Assessment and Plan - Plan Impression: Severe sepsis likely related to large right-sided pneumonia with acute respiratory failure complicated with possible COPD exacerbation and acute on chronic diastolic CHF Diabetes mellitus type 2 Hypertension Hyperlipidemia CAD Hypothyroidism Obesity Suspect obstructive sleep apnea Plan: Sepsis protocol and place. Continue with sepsis evaluation. Sepsis assessment evaluated. Patient improved. Patient on BiPAP at this time. Continue with BiPAP. Will transition patient to ICU. Blood, sputum and urine cultures obtained. Will check echocardiogram to evaluate for CHF. Will also start COPD medication. Will provide Lasix. Will start on Rocephin and Zithromax. Case discussed with cardiology and pulmonology. Await further recommendations. Will continue with sliding scale. Will provide medication IV for blood pressure. Will need to obtain home medication. Will continue monitor closely. Will continue to reassess in part with sepsis protocol. Discharge Plan: Home Plan to discharge in: Greater than 2 days - Advance Directives Does patient have a Living Will: Yes Does patient have a Durable POA for Healthcare: Yes - Code Status/Comfort Care Code Status Assessed: Yes (patient full code.) Time Spent Managing Pts Care (In Minutes): 65
[2018-10-12] MEDS ORDERED: BENZONATATE 100 MG CAP PO PRN (16:07)
[2018-10-12] MEDS ORDERED: HYDRALAZINE HCL 20 MG/ML VIAL IV PRN (16:07)
[2018-10-12] MEDS: NA CHLORIDE 0.9% 1,000 ML IV SCH ×2 (16:07→21:21)
[2018-10-12] MEDS ORDERED: ONDANSETRON 4 MG/2 ML VIAL IV PRN (16:07)
[2018-10-12] MEDS ORDERED: ALBUTEROL 2.5 MG/3 ML NEB SOL NEB PRN (16:07)
[2018-10-12] MEDS: INSULIN -REGULAR HUMAN 50 UNIT/0.5 ML ML SQ SCH ×2 (16:30→20:52)
[2018-10-12] MEDS ORDERED: FUROSEMIDE 20 MG/ 2ML VIAL IV SCH (17:00)
[2018-10-12 17:12] LABS: CKMB Creatine Kinase MB 3.9 ng/mL (0.3-3.6); Troponin I 0.08 ng/mL (0.0-0.045)
[2018-10-12 17:22] LABS: Thyroid Stimulating Hormone 40.2 uIU/mL (0.360-3.740)
--- NOTE | 2018-10-12 17:59 | P.INFCA ---
Sepsis Focused Assessment - Sepsis Screen Result Severe Sepsis: Positive Septic Shock: Negative - Evaluation Current stage of sepsis: Severe sepsis - Vital Signs Reviewed: Yes Heart rate: 96 Blood Pressure: 115/71 Respiratory Rate: 18 O2 Sat by Pulse Oximetry: 92 (on Nasal canula off BIPAP) - Examination Date exam was performed: 10/12/18 Time exam was performed: 17:58 Heart: Regular rate/rhythm Lungs: Crackles, Decreased breath sounds Peripheral pulses: 3+ Normal Peripheral pulse location: Radial Capillary refill: >2 Seconds Skin examination: Normal turgor
[2018-10-12] MEDS ORDERED: CEFTRIAXONE/SWI 1gm 1 GM/10 ML SYR IV SCH (18:00)
[2018-10-12] MEDS: AZITHROMYCIN IV 500 MG in NA CHLORIDE 0.9% 250 ML IVPB SCH (18:17)
[2018-10-12] MEDS: CEFTRIAXONE/SWI 1gm 1 GM/10 ML SYR IVP SCH (18:17)
[2018-10-12 18:51] VITALS: BMI 27.6
[2018-10-12] MEDS: IPRATROPIUM BROM 0.5MG/2.5ML NEB PRN (20:25)
[2018-10-12] MEDS: ARFORMOTEROL TARTRATE 15 MCG/2 ML VIAL.NEB NEB SCH (20:25)
[2018-10-12] MEDS: GUAIFENESIN 600 MG SA TAB PO SCH (20:51)
[2018-10-12] MEDS: ENOXAPARIN 40 MG/0.4 ML SQ SCH (23:29)
[2018-10-13 01:46] LABS: CKMB Creatine Kinase MB 5.1 ng/mL (0.3-3.6); Troponin I 0.06 ng/mL (0.0-0.045)
[2018-10-13 06:11] LABS: Absolute Lymphocytes (CBC) 1.5 K/uL (0.7-4.9); Absolute Monocytes 0.4 K/uL (0.1-1.3); Absolute Neutrophil 4.4 K/uL (1.8-8.0); Basophils % 1.2 % (0-1.3); Eosinophils % 1.8 % (0-4.4); Lymphocytes % 23.4 % (15.3-44.8); MPV 8.4 fL (7.6-11.3); Monocytes % 5.7 % (3.3-12.3); RBC Red Blood Cell Count 3.58 M/uL (3.86-4.86)
[2018-10-13 06:27] LABS: Magnesium 1.8 mg/dL (1.8-2.4); Potassium 3.6 mmol/L (3.5-5.1); Protein, Total 6.4 g/dL (6.4-8.2)
[2018-10-13] MEDS ORDERED: LEVOTHYROXINE SOD 0.088 MG TAB PO SCH (06:30)
--- NOTE | 2018-10-13 07:18 | ECHO ---
HEIGHT: 5 ft 6 in WEIGHT: 170 lb 12.8 oz DATE OF STUDY: 10/12/[address]: Aftab Delgado 2-DIMENSIONAL: YES M.MODE: YES DOPPLER: YES COLOR FLOW: YES TDS: YES PORTABLE: DEFINITY: BUBBLE STUDY: DIAGNOSIS: CONGESTIVE HEART FAILURE CARDIAC HISTORY: CATHERIZATION: SURGERY: PROSTHETIC VALVE: PACEMAKER: MEASUREMENTS (cm) DIASTOLIC (NORMALS) SYSTOLIC (NORMALS) IVSd 0.9 (0.6-1.2) LA Diam 4.0 (1.9-4.0) LVEF 40% LVIDd 5.0 (3.5-5.7) LVIDs 4.0 (2.0-3.5) %FS 20% LVPWd 1.0 (0.6-1.2) Ao Diam 2.4 (2.0-3.7) 2 DIMENSIONAL ASSESSMENT: RIGHT ATRIUM: NORMAL LEFT ATRIUM: NORMAL RIGHT VENTRICLE: NORMAL LEFT VENTRICLE: NORMAL SIZE TRICUSPID VALVE: NORMAL MITRAL VALVE: NORMAL PULMONIC VALVE: NORMAL AORTIC VALVE: NORMAL PERICARDIAL EFFUSION: NONE AORTIC ROOT: NORMAL LEFT VENTRICULAR WALL MOTION: MODERATE GLOBAL HYPOKINESIS DOPPLER/COLOR FLOW: MILD TRICUSPID REGURGITATION COMMENTS: TECHNICALLY DIFFICULT STUDY. MODERATE GLOBAL HYPOKINESIS EJECTION FRACTION 40%. MILD TRICUSPID REGURGITATION NORMAL RIGHT VENTRICULAR SYSTOLIC PRESSURE. NO EFFUSION. TECHNOLOGIST: AMANDO MÉNDEZ
[2018-10-13] MEDS: INSULIN -REGULAR HUMAN 50 UNIT/0.5 ML ML SQ SCH ×4 (08:19→20:45)
[2018-10-13] MEDS: FUROSEMIDE 40 MG TABLET PO SCH (08:20)
[2018-10-13] MEDS: LEVOTHYROXINE SOD 0.1 MG TAB PO SCH (08:20)
[2018-10-13] MEDS: NICOTINE 21 MG/PAT TD SCH (08:20)
[2018-10-13] MEDS: CEFTRIAXONE/SWI 1gm 1 GM/10 ML SYR IVP SCH (08:21)
[2018-10-13] MEDS: CLOPIDOGREL 75 MG TABLET PO SCH (08:21)
[2018-10-13] MEDS: DIGOXIN 0.125 MG TABLET PO SCH (08:21)
[2018-10-13] MEDS: GUAIFENESIN 600 MG SA TAB PO SCH ×2 (08:22→20:44)
[2018-10-13] MEDS: AZITHROMYCIN IV 500 MG in NA CHLORIDE 0.9% 250 ML IVPB SCH (08:24)
[2018-10-13] MEDS: LEVOTHYROXINE SOD 0.088 MG TAB PO SCH (08:24)
[2018-10-13] MEDS: ARFORMOTEROL TARTRATE 15 MCG/2 ML VIAL.NEB NEB SCH ×2 (08:35→19:55)
--- NOTE | 2018-10-13 08:36 | CON ---
Date of Consultation: 10/12/[address] Kaplan on 10/12/2018. I saw the patient on 10/12/2018. Reason For Consultation: Respiratory failure status post intubation and possible congestive heart fa ilure. History Of Present Illness: Ms. Chiang is a 63-year-old woman. She came into the emergency room with shortness of breath, was found to have pneumonia by chest x-ray and CT scan. Her white count was 11. 8 and BNP was 354. She had a very low TSH, less than 0.05. She was hypokalemic, pO2 was 59, pCO2 wa s 38, pH is 7.40. She was in sinus tach at 138, hypertensive initially. No reports of chest pain or syncope or palpitation. An echocardiogram which was done today showed an ejection fraction of 40%, which is identical to one in May of 2015. Past Medical History: Includes hypothyroidism, congestive heart failure, dyslipidemia, coronary sheyla ry disease, hypertension. Allergies: INCLUDE IODINE, NIACIN, AND CODEINE. Review of Systems: Unobtainable. Social History: Unobtainable. Family History: Unobtainable. Medications: At home include Lipitor, digoxin, Coreg, Lasix, Plavix, Imdur, Synthroid, and Cozaar. Physical Examination: General: She was intubated. Vital Signs: Sinus tach. Afebrile. O2 saturation adequate. HEENT: Negative. Neck: Supple. No bruit. Chest: Reveals rales at both bases. Cardiac: Revealed tachycardia. No murmurs, gallops, or rubs. Abdomen: Benign. Extremities: Revealed 1+ edema. Diagnostic Data: As stated earlier. EKG shows sinus tachycardia. Impression And Plan: 1.I think Ms. Chiang's main issue is pneumonia and possible sepsis. 2.Chronic systolic congestive heart failure that seemed to be stable. 3.Hypothyroidism. I think her Synthroid dose needs to be decreased or held for now. 4.Hypertension, well controlled. 5.History of dyslipidemia, on Lipitor. 6.History of coronary artery disease that seems to be stable. I agree with her present regimen. I would definitely be careful with her I's and O's. We will continue to watch her I's and O's, her christiane ght, and her creatinine. I will follow the patient along with Dr. Kaplan. I do not think the patien t is in clinical congestive heart failure at this point. JOSELINE/WSELEY Voice ID: [id number] Report ID: [id number]
--- NOTE | 2018-10-13 08:47 | P.PN ---
Subjective Date of Service: 10/13/18 Primary Care Provider: Dr. Valiente; Cardiology-Dr. Kyle Chief Complaint: Shortness of breath Subjective: Improving (Patient much improved. Patient on nasal cannula. Patient did well overnight. No significant edema to the lower extremities.) Physical Examination - Vital Signs Temperature: 97.8 F Blood Pressure: 123/99 Pulse: 90 Respirations: 12 Pulse Ox (%): 100 - Physical Exam General: Alert, In no apparent distress, Oriented x3, Cooperative HEENT: Atraumatic Neck: Supple Respiratory: Crackles/rales (To the right side), Other (Overall improved aeration) Cardiovascular: Normal pulses, Regular rate/rhythm Gastrointestinal: Normal bowel sounds, Soft and benign, Non-distended, No tenderness, No masses, No rebound, No guarding Musculoskeletal: No tenderness, No warmth Integumentary: No tenderness/swelling, No erythema, No warmth, No cyanosis Neurological: Normal speech, Normal strength at 5/5 x4 extr, Normal tone, Normal affect - Studies Laboratory Data (last 24 hrs) 10/12/18 11:30: APTT 28.5 10/12/18 09:06: PT 10.8, INR 0.92 10/12/18 09:06: WBC 11.8 H, Hgb 14.6, Hct 44.1, Plt Count 325 10/12/18 09:06: Sodium 135 L, Potassium 3.4 L, BUN 6 L, Creatinine 1.10, Glucose 361 H, Magnesium 2.2, Total Bilirubin 1.3 H, AST 26, ALT 23, Alkaline Phosphatase 220 H Medications List Reviewed: Yes Assessment & Plan Discharge Plan: Home Plan to discharge in: 72 Hours Physician Review Additional Text: Impression: Severe sepsis likely related to large right-sided pneumonia with acute respiratory failure complicated with possible COPD exacerbation and chronic systolic CHF Diabetes mellitus type 2 Hypertension Hyperlipidemia CAD Hypothyroidism Suspect obstructive sleep apnea Mild renal insufficiency Plan: Severe sepsis likely related to large right-sided pneumonia with acute respiratory failure complicated with possible COPD exacerbation and chronic systolic CHF: Patient has done well. Patient with nasal cannula. Antibiotics in place. Blood cultures and sputum cultures obtained. Continue with IV fluids. Will transition patient from ICU to the floor. Await further recommendations from pulmonology. Continue with current medication. Will wean off oxygen. Maintain sats above 90%. Echocardiogram shows ejection fraction of 40%. Continue with 1500 cc per day fluid restriction and Lasix. Will discuss further with cardiology. Diabetes mellitus type 2: Continue with sliding scale. Will check A1c. Hypertension: Will provide medication as needed. Once blood pressure increases will restart home medication. Hyperlipidemia: Continue with medication. CAD: Overall stable. No plan for intervention at this time. Hypothyroidism: Tsh abnormal. Will increase medication. Patient will need to have tsh and free T4 recheck in 4-6 weeks to monitor her progress. Suspect obstructive sleep apnea: Patient will need outpatient sleep study. Await further recommendations from pulmonology. Mild renal insufficiency: Likely from dehydration and sepsis. Improved. Will monitor closely. Time Spent Managing Pts Care (In Minutes): 55
--- NOTE | 2018-10-13 10:22 | RAD REPORT ---
EXAM DESCRIPTION: [place] Pa And Lat (2 Views)10/13/2018 10:15 am CLINICAL HISTORY: Cough COMPARISON: October 12, 2018 FINDINGS: Partial resolution in right lung opacities. Left lung appears clear. Heart is mildly enla rged IMPRESSION: Partial resolution in a right pneumonia
[2018-10-13] MEDS: NACHLORIDE 0.45% 1,000 ML IV SCH ×2 (13:08→20:45)
[2018-10-13] MEDS: ENOXAPARIN 40 MG/0.4 ML SQ SCH (17:21)
[2018-10-13] MEDS: IPRATROPIUM BROM 0.5MG/2.5ML NEB PRN (19:55)
[2018-10-13] MEDS: ACETAMINOPHEN 500 MG TAB PO PRN (20:44)
[2018-10-14] MEDS: LEVOTHYROXINE SOD 0.088 MG TAB PO SCH (05:25)
[2018-10-14] MEDS: LEVOTHYROXINE SOD 0.1 MG TAB PO SCH (05:25)
[2018-10-14] MEDS: ACETAMINOPHEN 500 MG TAB PO PRN (05:26)
[2018-10-14 05:45] LABS: Albumin 3.6 g/dL (3.4-5.0); Bilirubin Total 1.2 mg/dL (0.2-1.0); Potassium 3.5 mmol/L (3.5-5.1); Protein, Total 7.4 g/dL (6.4-8.2)
[2018-10-14 05:50] LABS: Absolute Lymphocytes (CBC) 1.6 K/uL (0.7-4.9); Absolute Monocytes 0.3 K/uL (0.1-1.3); Basophils % 2.7 % (0-1.3); Hematocrit 35.1 % (36.0-45.0); MPV 8.4 fL (7.6-11.3); Monocytes % 5.3 % (3.3-12.3); RBC Red Blood Cell Count 3.82 M/uL (3.86-4.86)
[2018-10-14] MEDS: INSULIN -REGULAR HUMAN 50 UNIT/0.5 ML ML SQ SCH ×4 (07:30→21:10)
[2018-10-14] MEDS: ARFORMOTEROL TARTRATE 15 MCG/2 ML VIAL.NEB NEB SCH (07:50)
[2018-10-14] MEDS: IPRATROPIUM BROM 0.5MG/2.5ML NEB PRN (07:50)
[2018-10-14] MEDS ORDERED: POTASSIUM 25 MEQ EFFERV TAB PO ONE (09:00)
[2018-10-14] MEDS: AZITHROMYCIN IV 500 MG in NA CHLORIDE 0.9% 250 ML IVPB SCH (09:00)
[2018-10-14] MEDS: CEFTRIAXONE/SWI 1gm 1 GM/10 ML SYR IVP SCH (09:00)
--- NOTE | 2018-10-14 09:14 | RAD REPORT ---
EXAM DESCRIPTION: RAD - Chest Pa And Lat (2 Views) - 10/14/2018 8:58 am CLINICAL HISTORY: Pneumonia, cough and congestion COMPARISON: October 13 TECHNIQUE: PA and lateral views of the chest were obtained. FINDINGS: The lungs are normal volume. No new mass or consolidation. Extensive interstitial opacific ation is present similar to prior imaging. No new mass or consolidation in the right lung base. Hear t size is normal and central vasculature is within normal limits. No pleural effusion or pneumothora x seen. No acute bony finding noted. No aortic abnormality. IMPRESSION: Extensive bilateral interstitial lung disease similar to prior day imaging. No new mass or consolidation at the right lung base.
[2018-10-14] MEDS: CLOPIDOGREL 75 MG TABLET PO SCH (10:26)
[2018-10-14] MEDS: DIGOXIN 0.125 MG TABLET PO SCH (10:26)
[2018-10-14] MEDS: GUAIFENESIN 600 MG SA TAB PO SCH ×2 (10:26→21:10)
[2018-10-14] MEDS: FUROSEMIDE 40 MG TABLET PO SCH (10:27)
[2018-10-14] MEDS: glipiZIDE 5 MG TAB PO SCH ×2 (10:27→17:42)
[2018-10-14] MEDS: NICOTINE 21 MG/PAT TD SCH (10:27)
[2018-10-14] MEDS: ENOXAPARIN 40 MG/0.4 ML SQ SCH (10:28)
--- NOTE | 2018-10-14 10:39 | P.PN ---
Subjective Date of Service: 10/14/18 Primary Care Provider: Dr. Valiente; Cardiology-Dr. Kyle Chief Complaint: Shortness of breath Subjective: Improving (patient reports chronic RUQ abdominal pain. No nausea. She would like to be evaluate for this.) Physical Examination - Vital Signs Temperature: 97.9 F Blood Pressure: 137/63 Pulse: 83 Respirations: 14 Pulse Ox (%): 100 - Physical Exam General: Alert, In no apparent distress, Oriented x3, Cooperative HEENT: Atraumatic Neck: Supple Respiratory: Clear to auscultation bilaterally, Normal air movement Cardiovascular: Normal pulses, Regular rate/rhythm Gastrointestinal: Normal bowel sounds, Soft and benign, Non-distended, No tenderness, No masses, No rebound, No guarding Musculoskeletal: No erythema, No tenderness, No warmth Integumentary: No erythema, No warmth, No cyanosis Neurological: Normal speech, Normal strength at 5/5 x4 extr, Normal tone, Normal affect - Studies Medications List Reviewed: Yes Assessment & Plan Discharge Plan: Home Plan to discharge in: 48 Hours Physician Review Additional Text: Impression: Severe sepsis likely related to large right-sided pneumonia with acute respiratory failure complicated with possible COPD exacerbation and chronic systolic CHF Diabetes mellitus type 2 Hypertension Hyperlipidemia CAD Hypothyroidism Suspect obstructive sleep apnea Mild renal insufficiency Chronic right upper quadrant abdominal pain Plan: Severe sepsis likely related to large right-sided pneumonia with acute respiratory failure complicated with possible COPD exacerbation and chronic systolic CHF: Patient continues to do well. Continue with antibiotic therapy. Await blood and sputum culture results. Will discuss case with pulmonology. Anticipate transition to oral medication bowl will discuss with pulmonology. Will continue to wean off oxygen. Continue with Lasix and fluid restriction. Discuss with cardiology yesterday. Encourage ambulation. Diabetes mellitus type 2: A1c above 9.0. Will start glipizide. Patient is not tolerated metformin in the past. Continue with sliding scale. Hypertension: Will provide medication as needed. Once blood pressure increases will restart home medication. Hyperlipidemia: Continue with medication. CAD: Overall stable. No plan for intervention at this time. Hypothyroidism: Tsh abnormal. Medication adjusted. Patient will need to have tsh and free T4 recheck in 4-6 weeks to monitor her progress. Suspect obstructive sleep apnea: Patient will need outpatient sleep study. Await further recommendations from pulmonology. Mild renal insufficiency: Likely from dehydration and sepsis. This continues to improve. Will monitor closely. Chronic right upper quadrant abdominal pain: Will check abdominal ultrasound. Time Spent Managing Pts Care (In Minutes): 55
--- NOTE | 2018-10-14 10:43 | RAD REPORT ---
EXAM DESCRIPTION: US - Abdomen Exam Complete - 10/14/2018 9:35 am CLINICAL HISTORY: Abdominal pain, right upper quadrant pain COMPARISON: Ultrasound study February 2013 FINDINGS: Gallbladder is absent. No mass or abnormal fluid collection in the gallbladder fossa. Comm on bile duct is normal with no common duct stone identified. The liver and spleen show no suspicious findings. The pancreas is normal. No hydronephrosis or suspicious mass in either kidney. Aorta and IVC show no suspicious findings. No ascites or bulky lymphadenopathy. IMPRESSION: Post cholecystectomy abdomen ultrasound showing no significant finding.
--- NOTE | 2018-10-14 10:56 | P.CNS ---
Date of Consult: 10/14/18 Primary Care Provider: Dr. Valiente; Cardiology-Dr. Kyle Chief Complaint: Shortness of breath History of Present Illness: Patient is 63 years of age admitted with sudden onset of chest pressure described as an elephant sitting on her chest associated with shortness of breath, nausea and was admitted to the hospital. Patient is a heavy smoker 1 pack a day she complains of constant chest pressure history of coronary artery disease had an NJ 13 years ago and she also has a stent placement is seen by Cardiology last followup was 2 years ago. History of congestive heart failure diagnosed at age 46 and has been compliant with her therapy no prior history of obstructive airways disease does not use any bronchodilators at home chest x- ray PA and lateral she has interstitial lung disease I suspect is from smoking Allergies codeine [Codeine] Allergy (Severe, Verified 01/07/12 11:47) unknown iodine [Iodine] Allergy (Unknown, Verified 01/07/12 11:47) Hives niacin [Niacin] Allergy (Unknown, Verified 01/07/12 11:48) Hives/Rash IODINE; IODINE CONTAINING Allergy (Uncoded 06/06/15 21:19) Unknown Home Medications: Carvedilol [Coreg*] 25 mg PO BID 06/04/15 Clopidogrel Bisulfate [Plavix] 75 mg PO DAILY 06/04/15 Digoxin [Lanoxin*] 0.125 mg PO DAILY 06/04/15 Isosorbide Mononitrate [Ismo] 20 mg PO BID 06/04/15 Levothyroxine [Synthroid*] 175 mcg PO DAILY 06/04/15 Furosemide [Lasix] 40 mg PO DAILY #30 tablet 06/05/15 - Past Medical/Surgical History Diabetic: Yes -: CAD -: CHF likely diastolic dysfunction -: Diabetes mellitus type 2 -: Hypertension -: COPD -: Tobacco abuse -: Obesity -: Hyperlipidemia -: Suspect obstructive sleep apnea -: Cholecystectomy -: Appendectomy -: Hysterectomy Psychosocial/ Personal History: Patient is single. She has 1 child. - Social History Smoking Status: Current every day smoker Alcohol use: No CD- Drugs: No Caffeine use: Yes Place of Residence: Home Review of Systems 10-point ROS is otherwise unremarkable Physical Examination Temp Pulse Resp BP Pulse Ox 97.9 F 83 14 137/63 100 10/14/18 10:39 10/14/18 10:39 10/14/18 10:39 10/14/18 10:39 10/14/18 10:39 General: Alert, Oriented x3 HEENT: Atraumatic Neck: Supple Respiratory: Clear to auscultation bilaterally Cardiovascular: No edema, Regular rate/rhythm Gastrointestinal: Normal bowel sounds, Soft and benign - Problems (1) COPD exacerbation Current Visit: Yes Status: Acute Plan: Patient is 63 years of age admitted with sudden onset of chest pressure shortness of breath I strongly suspect that she has underlying COPD patient is a heavy smoker 1 pack a day history of coronary artery disease with had an NJ and stent placement seeing a podopediatrician also history of congestive heart failure all labs reviewed check room air pulse ox again patient is to be on a bronchodilator and low-dose prednisone plan to discharge home follow with me in 2 weeks echocardiogram shows congestive heart failure CT scan chest x-ray reviewed doubt pneumonia she has chronic interstitial change I suspect from her prior smoking wobbly had some mild failure on admission A consultation not to smoke she will benefit from Nicoderm patches
[2018-10-14 11:33] LABS: Arterial Blood Carboxyhemoglob 2.8 % (0-1.5); Blood Gas Oxyhemoglobin 92.3 % (94-97); Blood O2 Saturation 95.6 % (92-98.5)
[2018-10-14] MEDS: NACHLORIDE 0.45% 1,000 ML IV SCH ×2 (11:40→21:07)
[2018-10-14] MEDS: DULERA 200/5 (MOMETASONE/FORMOTEROL) INHALER IH SCH ×2 (12:59→21:09)
[2018-10-14] MEDS: predniSONE 20 MG TAB PO SCH ×2 (13:00→21:10)
[2018-10-15] MEDS: LEVOTHYROXINE SOD 0.088 MG TAB PO SCH (05:38)
[2018-10-15] MEDS: LEVOTHYROXINE SOD 0.1 MG TAB PO SCH (05:38)
[2018-10-15 05:41] LABS: Absolute Lymphocytes (CBC) 0.6 K/uL (0.7-4.9); Absolute Monocytes 0.2 K/uL (0.1-1.3); Absolute Neutrophil 5.6 K/uL (1.8-8.0); Basophils % 1.2 % (0-1.3); Hematocrit 33.9 % (36.0-45.0); Lymphocytes % 8.8 % (15.3-44.8); MPV 8.6 fL (7.6-11.3); RBC Red Blood Cell Count 3.68 M/uL (3.86-4.86)
[2018-10-15 05:51] LABS: Albumin 3.4 g/dL (3.4-5.0); Bilirubin Total 0.8 mg/dL (0.2-1.0); Magnesium 2.1 mg/dL (1.8-2.4); Potassium 4.2 mmol/L (3.5-5.1); Protein, Total 7.2 g/dL (6.4-8.2)
[2018-10-15 06:52] VITALS: O2SAT 94
--- NOTE | 2018-10-15 06:54 | PN ---
Date of Progress Note: 10/13/2018 Ms. Chiang had come in with sepsis, pneumonia. She was intubated, has an ejection fraction of 40%, whi ch has not changed since 2014. She is in normal sinus rhythm. Has done well with antibiotics and hy dration. She is extubated. We will continue her present regimen per Dr. Kaplan and Dr. Holt. S he definitely has some congestive heart failure component as well. She should be on a low-dose Lasix , low-dose beta-blockers, and EARNESTINE inhibitors as well. We will see her as needed. We will be happy t o see her as an outpatient after she gets discharged. JOSELINE/WESLEY Voice ID: [id number] Report ID: [id number]
[2018-10-15] MEDS: INSULIN -REGULAR HUMAN 50 UNIT/0.5 ML ML SQ SCH ×2 (07:30→11:30)
[2018-10-15 08:03] LABS: Anisocytosis 2+; Blood Morphology Comment NOTED (NOT SEEN); Platelet Estimate ADEQ; Urine White Blood Cell Casts OK
[2018-10-15] MEDS: NICOTINE 21 MG/PAT TD SCH (09:43)
[2018-10-15] MEDS: DULERA 200/5 (MOMETASONE/FORMOTEROL) INHALER IH SCH (09:43)
[2018-10-15] MEDS: ENOXAPARIN 40 MG/0.4 ML SQ SCH (09:44)
[2018-10-15] MEDS: FUROSEMIDE 40 MG TABLET PO SCH (09:44)
[2018-10-15] MEDS: predniSONE 20 MG TAB PO SCH (09:45)
[2018-10-15] MEDS: DIGOXIN 0.125 MG TABLET PO SCH (09:45)
[2018-10-15] MEDS: glipiZIDE 5 MG TAB PO SCH (09:45)
[2018-10-15] MEDS: GUAIFENESIN 600 MG SA TAB PO SCH (09:45)
[2018-10-15] MEDS: CLOPIDOGREL 75 MG TABLET PO SCH (09:45)
--- NOTE | 2018-10-15 10:10 | P.DS ---
Admission Date: 10/12/18 Discharge Date: 10/15/18 Primary Care Provider: Dr. Valiente; Cardiology-Dr. Kyle Disposition: ROUTINE DISCHARGE Discharge Condition: FAIR Reason for Admission: Shortness of breath Consultations: Pulmonary-Dr. Holt Cardiology-Dr. Roman Procedures: CT scan: COMPARISON: Chest film same date, CT chest 2006 TECHNIQUE: Axial 5 mm thick images of the chest were obtained without IV contrast. All CT scans are performed using dose optimization technique as appropriate and may include automated exposure control or mA/KV adjustment according to patient size. FINDINGS: Interstitial alveolar opacification is scattered through most of the right lower lobe. No cavitation. No mass density seen. The oval mass density lower right lung field on the chest film is believed to be summation of the right lower lobe findings and overlying chest structures. Trace amount of ground -glass opacification seen in the anterior aspects of the right upper and right middle lobes. There is minimal interstitial opacification in the posterior gutter on the left. No pleural thickening or pleural effusion. No pneumothorax. A few small nonspecific mediastinal lymph nodes are present. These are not substantially different from the 2007 CT study. No gross aortic or pulmonary artery finding suspected. Assessment is limited in the absence of IV contrast. No pericardial thickening or effusion. No chest wall mass or abnormal axillary lymphadenopathy. IMPRESSION: Noncontrast study showing interstitial and alveolar opacification scattered throughout most of the right lower lobe. Pneumonia is the most likely etiology. Minimal pneumonia or alveolitis changes in the anterior right middle and right upper lobes. Nonspecific mediastinal lymph nodes most likely reactive and not substantially different from 2007. Pulmonary embolism and other vascular abnormalities cannot be assessed on noncontrast imaging. Venous Doppler: COMPARISON: None. TECHNIQUE: Real-time sonographic evaluation of the bilateral lower extremity common femoral, superficial femoral, popliteal and posterior tibial veins was performed. FINDINGS: Normal compressibility, flow augmentation, phasic flow and spontaneous flow are identified in the left and right lower extremity common femoral, superficial femoral, popliteal and posterior tibial veins. No intraluminal filling defects seen. IMPRESSION: No DVT in either lower extremity. ECHO: Ejection fraction 40% LEFT VENTRICULAR WALL MOTION: MODERATE GLOBAL HYPOKINESIS DOPPLER/COLOR FLOW: MILD TRICUSPID REGURGITATION COMMENTS: TECHNICALLY DIFFICULT STUDY. MODERATE GLOBAL HYPOKINESIS EJECTION FRACTION 40%. MILD TRICUSPID REGURGITATION NORMAL RIGHT VENTRICULAR SYSTOLIC PRESSURE. NO EFFUSION. ABUS: COMPARISON: Ultrasound study February 2013 FINDINGS: Gallbladder is absent. No mass or abnormal fluid collection in the gallbladder fossa. Common bile duct is normal with no common duct stone identified. The liver and spleen show no suspicious findings. The pancreas is normal. No hydronephrosis or suspicious mass in either kidney. Aorta and IVC show no suspicious findings. No ascites or bulky lymphadenopathy. IMPRESSION: Post cholecystectomy abdomen ultrasound showing no significant finding. Follow up CXR: COMPARISON: October 13 TECHNIQUE: PA and lateral views of the chest were obtained. FINDINGS: The lungs are normal volume. No new mass or consolidation. Extensive interstitial opacification is present similar to prior imaging. No new mass or consolidation in the right lung base. Heart size is normal and central vasculature is within normal limits. No pleural effusion or pneumothorax seen. No acute bony finding noted. No aortic abnormality. IMPRESSION: Extensive bilateral interstitial lung disease similar to prior day imaging. No new mass or consolidation at the right lung base. Medical Problem List: Acute on chronic respiratory failure with hypoxia and hypercapnia due to COPD exacerbation and possible acute on chronic systolic CHF Diabetes mellitus type 2 Hypertension Hyperlipidemia CAD Hypothyroidism Suspect obstructive sleep apnea Mild renal insufficiency Chronic right upper quadrant abdominal pain Brief History of Present Illness: 63-year-old female presented to the emergency room with shortness of breath. Patient presented to the ER with shortness of breath. I actually saw the patient in the ER parking lot. She was complaining of shortness of breath at that time. She had some nausea. She appeared diaphoretic. ER was called. The patient was assessed in the emergency room. In my conversation with the patient she mentioned history of diabetes, heart disease and possible COPD. She is a smoker. In the ER patient evaluated patient. She appeared diaphoretic, tachypneic and hypoxic. Room-air saturations were 80%. Patient was given nitroglycerin and Lasix. BiPAP was initiated. Sepsis assessment was done by the ER. Sepsis protocol initiated. Patient was given IV Levaquin and fluid boluses. Initial white count 11.8. Lactic acid 3.3. Pro calcitonin unremarkable. Troponin unremarkable. BNP 350. Sodium 138, potassium 3.4, BUN of 6, creatinine 1.0 with a GFR 50. Glucose elevated at 360. Initial chest x-ray showed right-sided pneumonia. Venous Doppler of the lower extremity unremarkable for DVT. CT scan done without contrast shows a large right pneumonia. Patient was stabilize in the emergency room. I was asked to admit the patient. And saw the patient ER, she was still on BiPAP. She appeared much improved since I last saw her in the parking lot. She reported increasing shortness of breath today. Patient does smoke regularly. She does not drink alcohol. She is seen by cardiology as an outpatient. She drove herself to the emergency room due to shortness of breath. Hospital Course: Patient presented with severe shortness of breath, hypoxia and hypercapnia. Upon initial evaluation severe sepsis was suspected. Pneumonia, CHF was also in the differential. Patient was treated aggressively. Patient admitted to ICU. During the course of her stay patient was evaluated by Pulmonology and Cardiology. Pro calcitonin negative. Blood cultures negative. CT scan showed no pulmonary embolism. Venous Doppler negative for DVT. Patient improved quickly. Pulmonology felt patient did not have sepsis but that this was related to acute on chronic respiratory failure related to COPD exacerbation and possibly acute on chronic systolic CHF. Patient had not been diagnosed with COPD in the past but was a heavy smoker. Patient started on medication. Patient improved during her stay. Patient no longer needs oxygen. At discharge patient will continue with prednisone 10 mg 1 pill daily for 5 days. Patient will continue with Dulera 200 mcg 2 puffs twice daily and Pro air 2 puffs 3 times a day as needed for shortness of breath. Education on COPD will be provided. Patient will also be given Tessalon Perles 100 mg 1 pill 3 times a day as needed for cough. Patient will follow up with pulmonology as an outpatient in 1-2 weeks to follow up this hospitalization. Recommend to recheck chest x-ray in 2-4 weeks. Patient will require pulmonary function test as an outpatient to further address. Patient with acute on chronic systolic CHF. Patient provided diuretic therapy. Patient seen by Cardiology. Echocardiogram showed ejection fraction of 40%. No further cardiac intervention was required. Patient did well in her stay. At discharge she will continue with a 1500 cc per day fluid restriction and low- salt diet. She is to monitor her weight daily. If her weight increases by more than 5 lb she is to contact her PCP or cardiology for further recommendation. Patient will continue with Lasix 40 mg daily along with potassium supplementation and digoxin 0.125 mg daily. Patient with hypothyroidism. Tsh was elevated. Medication adjusted during her stay. At discharge she will continue with levothyroxine 188 mcg daily. Recommend to recheck tsh and free T4 in 4-6 weeks to further address. Further adjustment may be required. May benefit with endocrinology evaluation as an outpatient to further address. Patient has diabetes mellitus type 2. Patient has not tolerated metformin in the past. New medication initiated. At discharge she will continue with glipizide 5 mg 1 pill twice daily and Januvia 25 mg daily. Recommend him maintain blood sugars less 140 fasting and less than 200 after meals. Further adjustment can be done by her PCP. Patient with CAD. Patient will continue with Plavix 75 mg daily and isosorbide mononitrate 20 mg 1 pill twice. Patient has hyperlipidemia. This has remained stable. Patient will continue with Procardia. Patient has hypertension. At discharge she will continue with carvedilol 25 mg 1 pill twice daily. Recommend to maintain blood pressures less 150/80. Further adjustment can be done by her PCP. Patient reported chronic right upper quadrant pain. Patient with history of cholecystectomy and seen by GI in the past for E ERCP. Abdominal ultrasound unremarkable showing no common bile duct dilation. Pancreas, kidneys unremarkable. Recommend to follow up with GI as an outpatient to further evaluate and address. Patient with tobacco abuse. Patient plans to quit. Patient will be provided nicotine patch daily. This can be further addressed by her PCP. Lifestyle modification education will be provided. Patient likely has obstructive sleep apnea. Recommend a follow up with pulmonology as an outpatient to further evaluate. Patient will likely require sleep study. Vital Signs/Physical Exam: Temp Pulse Resp BP Pulse Ox 97.3 F 99 H 15 152/69 H 97 10/15/18 08:00 10/15/18 09:44 10/15/18 08:00 10/15/18 09:44 10/15/18 08:00 General: Alert, In no apparent distress, Oriented x3, Cooperative HEENT: Atraumatic Neck: Supple Respiratory: Clear to auscultation bilaterally, Normal air movement Cardiovascular: Normal pulses, Regular rate/rhythm Gastrointestinal: Normal bowel sounds, Soft and benign, Non-distended, No tenderness, No masses, No rebound, No guarding Musculoskeletal: No erythema, No tenderness, No warmth Integumentary: No tenderness/swelling, No erythema, No warmth, No cyanosis Neurological: Normal speech, Normal strength at 5/5 x4 extr, Normal tone, Normal affect Laboratory Data at Discharge: WBC 6.5 K/uL (4.3-10.9) 10/15/18 04:45 Hgb 11.5 g/dL (12.0-15.0) L 10/15/18 04:45 Hct 33.9 % (36.0-45.0) L 10/15/18 04:45 Plt Count 209 K/uL (152-406) 10/15/18 04:45 PT 10.8 SECONDS (9.5-12.5) 10/12/18 09:06 INR 0.92 10/12/18 09:06 APTT 28.2 SECONDS (24.3-36.9) 10/12/18 22:26 Sodium 139 mmol/L (136-145) 10/15/18 04:45 Potassium 4.2 mmol/L (3.5-5.1) 10/15/18 04:45 BUN 14 mg/dL (7-18) 10/15/18 04:45 Creatinine 0.86 mg/dL (0.55-1.3) 10/15/18 04:45 Glucose 289 mg/dL (74-106) H 10/15/18 04:45 Magnesium 2.1 mg/dL (1.8-2.4) 10/15/18 04:45 Total Bilirubin 0.8 mg/dL (0.2-1.0) 10/15/18 04:45 AST 13 U/L (15-37) L 10/15/18 04:45 ALT 16 U/L (12-78) 10/15/18 04:45 Alkaline Phosphatase 150 U/L (45-117) H 10/15/18 04:45 Troponin I 0.06 ng/mL (0.0-0.045) H 10/13/18 01:10 Triglycerides 360 mg/dL (<150) H 10/13/18 05:34 Cholesterol 186 mg/dL (<200) 10/13/18 05:34 HDL Cholesterol 32 mg/dL (40-60) L 10/13/18 05:34 Cholesterol/HDL Ratio 5.81 10/13/18 05:34 Home Medications: Carvedilol [Coreg*] 25 mg PO BID 06/04/15 Clopidogrel Bisulfate [Plavix] 75 mg PO DAILY 06/04/15 Digoxin [Lanoxin*] 0.125 mg PO DAILY 06/04/15 Isosorbide Mononitrate [Ismo] 20 mg PO BID 06/04/15 Furosemide [Lasix] 40 mg PO DAILY #30 tablet 06/05/15 Albuterol Sulfate [Proair Hfa] 2 puff IH TID PRN #1 hfa.aer.ad 10/15/18 Benzonatate [Tessalon Perle*] 100 mg PO TID PRN #15 cap 10/15/18 Levothyroxine Sodium [Levoxyl] 88 mcg PO DAILY #30 tablet 10/15/18 Levothyroxine Sodium [Levoxyl] 100 mcg PO DAILY #30 tablet 10/15/18 Mometasone/Formoterol [Dulera 200 Mcg/5 Mcg Inhaler] 2 puff IH BID #1 inhaler Nicotine [Nicoderm*] 21 mg TD DAILY #30 patch.td24 10/15/18 Sitagliptin Phosphate [Januvia] 25 mg PO DAILY #30 tablet 10/15/18 glipiZIDE [Glucotrol*] 5 mg PO BIDWM #60 tab 10/15/18 predniSONE [Deltasone*] 10 mg PO DAILY #5 tab 10/15/18 New Medications: Albuterol Sulfate [Proair Hfa] 2 puff IH TID PRN #1 hfa.aer.ad PRN Reason: Shortness Of Breath Benzonatate [Tessalon Perle*] 100 mg PO TID PRN #15 cap PRN Reason: Cough glipiZIDE [Glucotrol*] 5 mg PO BIDWM #60 tab Levothyroxine Sodium [Levoxyl] 100 mcg PO DAILY #30 tablet Levothyroxine Sodium [Levoxyl] 88 mcg PO DAILY #30 tablet Mometasone/Formoterol [Dulera 200 Mcg/5 Mcg Inhaler] 2 puff IH BID #1 inhaler Nicotine [Nicoderm*] 21 mg TD DAILY #30 patch.td24 predniSONE [Deltasone*] 10 mg PO DAILY #5 tab Sitagliptin Phosphate [Januvia] 25 mg PO DAILY #30 tablet Patient Discharge Instructions: 1. Patient will need to follow up with her PCP within 1 week to follow up this hospitalization. 2. Patient presented with severe shortness of breath, hypoxia and hypercapnia. Upon initial evaluation severe sepsis was suspected. Pneumonia, CHF was also in the differential. Patient was treated aggressively. Patient admitted to ICU. During the course of her stay patient was evaluated by Pulmonology and Cardiology. Pro calcitonin negative. Blood cultures negative. CT scan showed no pulmonary embolism. Venous Doppler negative for DVT. Patient improved quickly. Pulmonology felt patient did not have sepsis but that this was related to acute on chronic respiratory failure related to COPD exacerbation and possibly acute on chronic systolic CHF. Patient had not been diagnosed with COPD in the past but was a heavy smoker. Patient started on medication. Patient improved during her stay. Patient no longer needs oxygen. At discharge patient will continue with prednisone 10 mg 1 pill daily for 5 days. Patient will continue with Dulera 200 mcg 2 puffs twice daily and Pro air 2 puffs 3 times a day as needed for shortness of breath. Education on COPD will be provided. Patient will also be given Tessalon Perles 100 mg 1 pill 3 times a day as needed for cough. Patient will follow up with pulmonology as an outpatient in 1-2 weeks to follow up this hospitalization. Recommend to recheck chest x-ray in 2-4 weeks. Patient will require pulmonary function test as an outpatient to further address. 3. Patient with acute on chronic systolic CHF. Patient provided diuretic therapy. Patient seen by Cardiology. Echocardiogram showed ejection fraction of 40%. No further cardiac intervention was required. Patient did well in her stay. At discharge she will continue with a 1500 cc per day fluid restriction and low-salt diet. She is to monitor her weight daily. If her weight increases by more than 5 lb she is to contact her PCP or cardiology for further recommendation. Patient will continue with Lasix 40 mg daily along with potassium supplementation and digoxin 0.125 mg daily. 4. Patient with hypothyroidism. Tsh was elevated. Medication adjusted during her stay. At discharge she will continue with levothyroxine 188 mcg daily. Recommend to recheck tsh and free T4 in 4-6 weeks to further address. Further adjustment may be required. May benefit with endocrinology evaluation as an outpatient to further address. 5. Patient has diabetes mellitus type 2. Patient has not tolerated metformin in the past. New medication initiated. At discharge she will continue with glipizide 5 mg 1 pill twice daily and Januvia 25 mg daily. Recommend him maintain blood sugars less 140 fasting and less than 200 after meals. Further adjustment can be done by her PCP. 6. Patient with CAD. Patient will continue with Plavix 75 mg daily and isosorbide mononitrate 20 mg 1 pill twice. Patient has hyperlipidemia. This has remained stable. Patient will continue with Procardia. 7. Patient has hypertension. At discharge she will continue with carvedilol 25 mg 1 pill twice daily. Recommend to maintain blood pressures less 150/80. Further adjustment can be done by her PCP. 8. Patient reported chronic right upper quadrant pain. Patient with history of cholecystectomy and seen by GI in the past for E ERCP. Abdominal ultrasound unremarkable showing no common bile duct dilation. Pancreas, kidneys unremarkable. Recommend to follow up with GI as an outpatient to further evaluate and address. 9. Patient with tobacco abuse. Patient plans to quit. Patient will be provided nicotine patch daily. This can be further addressed by her PCP. 10. Lifestyle modification education will be provided. 11. Patient may have underlying obstructive sleep apnea. Recommend for patient to follow up with pulmonology to further evaluate. Patient will likely require sleep study. Diet: Regular Activity: Ad abel Followup: Pepito Holt MD [ACTIVE - CAN ADMIT] - Time spent managing pt's care (in minutes): 55
[2018-10-15] MEDS ORDERED: CARVEDILOL 25 MG TAB PO SCH (11:00)
[2018-10-15] MEDS ORDERED: ISOSORBIDE MONO 10 MG TAB PO SCH (11:00)
[2018-10-15 12:34] VITALS: BP 137/65; TEMP 98.7
[2018-10-15] MEDS ORDERED: ISOSORBIDE MONONITRATE 20 MG PO SCH (21:00)
== END 2018-10-15 13:38 | disposition home or self-care (01) | DRG 190 ==
LOC: ER 08:57 → ERHOLD 13:37 → 3RD-ICU 15:58 → 2ND 10-13 09:16
PROVIDERS: ADMIT Family Medicine; ATTEND Family Medicine
PROC: 5A09357 Assistance with Respiratory Ventilation, Less than 24 Consecutive Hours, Continuous Positive Airway Pressure (ICD-10-PCS; principal; 2018-10-12)
DX: J44.1 Chronic obstructive pulmonary disease with (acute) exacerbation (principal); J96.22 Acute and chronic respiratory failure with hypercapnia; J96.21 Acute and chronic respiratory failure with hypoxia; I50.23 Acute on chronic systolic (congestive) heart failure; F17.210 Nicotine dependence, cigarettes, uncomplicated; I11.0 Hypertensive heart disease with heart failure; E78.5 Hyperlipidemia, unspecified; I25.10 Atherosclerotic heart disease of native coronary artery without angina pectoris; E11.9 Type 2 diabetes mellitus without complications; E03.9 Hypothyroidism, unspecified; E87.6 Hypokalemia; Z88.5 Allergy status to narcotic agent; Z88.8 Allergy status to other drugs, medicaments and biological substances; I25.2 Old myocardial infarction; Z95.5 Presence of coronary angioplasty implant and graft; G47.33 Obstructive sleep apnea (adult) (pediatric); N28.9 Disorder of kidney and ureter, unspecified; E66.9 Obesity, unspecified; Z68.27 Body mass index [BMI] 27.0-27.9, adult
CPT/HCPCS: 36415; 51702; 71045; 71046; 71250; 76700; 80048; 80053; 80061; 80076; 81003; 82550; 82553; 82805; 82962; 83036; 83605; 83735; 83880; 84145; 84439; 84443; 84484; 85025; 85610; 85730; 87040; 93005; 93306; 93970; 94640; 94660; 94760; 99291; 99292; J0456; J0696; J1644; J1650; J1940; J2405; J3360; J7030; J7512; J7605; J7606

== ENCOUNTER 2019-04-05 08:37 | Day surgery (SDC) | payer OTHER ==
[2019-04-05] MEDS ORDERED: PROPOFOL 200 MG/20 ML VIAL IV ONE (08:49)
[2019-04-05] MEDS ORDERED: FENTANYL CITR 100 MCG/2 ML ONE ×2 (08:50→10:13)
[2019-04-05] MEDS ORDERED: MIDAZOLAM HCL 2 MG/2 ML INJ ONE (08:50)
[2019-04-05] MEDS ORDERED: ONDANSETRON 4 MG/2 ML VIAL ONE (08:51)
[2019-04-05] MEDS ORDERED: LIDOCAINE 1% MPF 2 ML AMPULE ONE (08:51)
[2019-04-05] MEDS ORDERED: COLLAGENASE 30 GM OINTMENT TOP ONE (08:53)
[2019-04-05 09:01] LABS: Absolute Lymphocytes (CBC) 1.3 K/uL (0.7-4.9); Basophils % 2.1 % (0-1.3); Eosinophils % 2.1 % (0-4.4); Hematocrit 36.8 % (36.0-45.0); Lymphocytes % 17.1 % (15.3-44.8); MPV 8.6 fL (7.6-11.3); Monocytes % 6.7 % (3.3-12.3); RBC Red Blood Cell Count 4.13 M/uL (3.86-4.86)
[2019-04-05] MEDS ORDERED: NA CHLORIDE 0.9% 1,000 ML ONE (09:03)
[2019-04-05] MEDS ORDERED: CEFAZOLIN/SWI 1gm 1 GM/10 ML SYR ONE (09:03)
[2019-04-05 09:15] LABS: Potassium 4.8 mmol/L (3.5-5.1)
[2019-04-05] MEDS ORDERED: INSULIN -REGULAR HUMAN 50 UNIT/0.5 ML ML ONE ×2 (09:34→10:39)
--- NOTE | 2019-04-05 11:44 | OP ---
Date of Procedure: 04/05/2019 Surgeon: Maico Isaacs MD Preoperative Diagnosis: Abscess, right buttock. Postoperative Diagnosis: Abscess, right buttock. Procedure: Excision and debridement of right buttock abscess, 6 x 4 cm to subcutaneous tissue. Estimated Blood Loss: Minimal. Specimen: Pus and right buttock abscess. Findings: As above. Anesthesia: General. Complications: None. The patient tolerated the procedure in stable condition and taken to Recovery in good general conditi on. Procedure In Detail: The patient was brought to the OR and placed in supine position. General anest hesia was begun. The patient was placed in lithotomy position, prepped and draped in usual sterile f ashion. Then, Marcaine 0.5% was infiltrated locally and a 15-blade was used to make a 6 x 4 cm incis ion to excise a 6 x 4 cm abscess approximately with central necrosis, erythema, warmth, edema and flu ctuance, down through the subcutaneous tissue. Pus was encountered. Cultures were done h ealthy subcutaneous tissue and sent to Pathology. Wound irrigated. Bleeding controlled with cautery and then wet-to-dry normal saline dressing change was applied. Sterile dressing was applied. The p atient was awakened and taken to Recovery in good general condition. Discharge Note: The patient will go to Day Surgery and home when stable. Disposition: Home. Condition: Stable. Discharge Instructions: Resume home medications and diet. Activity as tolerated. No heavy lifting. Remove outer dressing in a.m. Wet-to-dry normal saline dressing changes daily. Follow up in [place] in 2 weeks, call for appointment. Tylenol No. 3 one tablet p.o. q.4 p.r.n. pain, Cipro 500 mg p .o. q.12 and home health. /MODL Voice ID: [id number] Report ID: [id number]
[2019-04-05 12:32] VITALS: BP 125/64; TEMP 98.5; O2SAT 93
== END 2019-04-05 12:25 | disposition home or self-care (01) ==
LOC: OR 08:37
PROVIDERS: ATTEND Surgery
PROC: 0JB90ZX Excision of Buttock Subcutaneous Tissue and Fascia, Open Approach, Diagnostic (ICD-10-PCS; principal; 2019-04-05 09:00)
DX: L72.0 Epidermal cyst (principal); E11.9 Type 2 diabetes mellitus without complications; Z79.899 Other long term (current) drug therapy
CPT/HCPCS: 11406; 87070; 85025; 80048; 36415; 87205; 82962 ×3; 88304; 87075; J2704; J3010; J2001; J0690; J7030; J2405; J2250; J3590

== ENCOUNTER 2019-05-22 04:17 | Emergency (ER) | payer OTHER ==
[2019-05-22] MEDS ORDERED: MIDAZOLAM HCL 2 MG/2 ML INJ ONE (05:02)
[2019-05-22 06:02] LABS: ALT/SGPT 18 U/L (12-78); AST/SGOT 15 U/L (15-37); Albumin 3.3 g/dL (3.4-5.0); Alkaline Phosphatase 118 U/L (45-117); BUN Blood Urea Nitrogen 12 mg/dL (7-18); Bicarbonate 29 mmol/L (21-32); Bilirubin Direct 0.4 mg/dL (0-0.2); Bilirubin Total 2.5 mg/dL (0.2-1.0); Glucose Level 273 mg/dL (74-106); Magnesium 1.8 mg/dL (1.8-2.4); NT PRO-BNP 1035 pg/mL (<125); Potassium 3.8 mmol/L (3.5-5.1); Protein, Total 6.7 g/dL (6.4-8.2); Sodium Level 140 mmol/L (136-145); Troponin (Emerg Dept Use Only) < 0.02 ng/mL (0.0-0.045)
[2019-05-22] MEDS ORDERED: MORPHINE 2 MG/ML SYR ONE (06:05)
[2019-05-22] MEDS ORDERED: ONDANSETRON 4 MG/2 ML VIAL ONE (06:05)
--- NOTE | 2019-05-22 07:01 | ER ---
Nurse's Notes [facility] Name: Brie Chiang Age: 63 yrs Sex: Female : 1955 Arrival Date: 05/22/2019 Time: 04:25 Bed 15 Private MD: Diagnosis: Acute fracture of the proximal left humerus. Fracture nasal bones Presentation: 05/22 04:26 Presenting complaint: EMS states: PT fell and hit her face, and landed on her left jb4 shoulder. She was hypotensive upon our arrival. administered 500 NS bolus. Transition of care: patient was not received from another setting of care. Onset of symptoms was May 22, 2019. Risk Assessment: Do you want to hurt yourself or someone else? Patient reports no desire to harm self or others. Initial Sepsis Screen: Does the patient meet any 2 criteria? HR > 90 bpm. Yes Does the patient have a suspected source of infection? No. Patient's initial sepsis screen is negative. Care prior to arrival: None. Medication(s) given: Normal saline infusion, 500 mL, IV initiated. 18 GA, in the right wrist, Glucose check: 254. 04:26 Method Of Arrival: EMS: [facility] jb4 04:26 Acuity: SUSSY 2 jb4 07:00 Mechanism of Injury: Fall from standing position. Trauma event details: Injury occurred rb1 in the [facility], Injury occurred: at home. Trauma Activation: Alert Physician: ED Physician; Name: Kwadwo; Notified At: 04:17; Arrived At: 04:17 Physician: General Surgeon; Name: ; Notified At: 04:17; Arrived At: Physician: Radiology; Name: Allie; Notified At: 04:17; Arrived At: 04:18 Physician: Respiratory; Name: Addison; Notified At: 04:17; Arrived At: 04:20 Physician: Lab; Name: ; Notified At: 04:17; Arrived At: 04:17 07:00 Documented based off the information documented on the Activation Tracking System Sheet.[email or web address] Historical: - Allergies: 04:32 Codeine; jb4 04:32 Iodine; jb4 04:32 Niacin; jb4 - Home Meds: 04:32 Plavix Oral [Active]; levothyroxine oral [Active]; Isosorbide Mononitrate Oral jb4 [Active]; Furosemide Oral [Active]; Digoxin Oral [Active]; carvedilol Oral [Active]; Glipizide Oral [Active]; ozempic [Active]; - PMHx: 04:32 CHF; Diabetes - IDDM; Myocardial infarction; Hypothyroidism; jb4 - PSHx: 04:32 Appendectomy; Hysterectomy; Cholecystectomy; Heart stents; jb4 - Immunization history:: Adult Immunizations unknown. - Social history:: Smoking status: Patient/guardian denies using tobacco, Patient/guardian denies using alcohol. - Ebola Screening: : No symptoms or risks identified at this time. Screenin:36 Abuse screen: Denies threats or abuse. Nutritional screening: No deficits noted. jb4 Tuberculosis screening: No symptoms or risk factors identified. Fall risk At risk due to injury, age, Intervention for positive screen: ED Physician notified, side rails up. 07:00 Fall Risk Fall in past 12 months (25 points). No secondary diagnosis (0 pts). IV access rb1 (20 points). Ambulatory Aid- None/Bed Rest/Nurse Assist (0 pts). Gait- Normal/Bed Rest/Wheelchair (0 pts) Mental Status- Oriented to own ability (0 pts). Total Pressley Fall Scale indicates High Risk Score (45 or more points). Fall prevention measures have been instituted. Side Rails Up X 2 Placed Close to Nursing Station 1:1 Attendant Assigned Frequent Obs/Assessments Occuring As available patient and family educated on Fall Prevention Program and Strategies. Primary Survey: 04:36 NO uncontrolled hemorrhage observed. A: The patient is alert. Airway: patent, No jb4 supplemental oxygen in use on arrival. Oral cavity: clear, gag reflex present. Breathing/Chest: Respiratory pattern: regular, Respiratory effort: spontaneous, unlabored, Chest inspection: symmetrical rise and fall of the chest. Circulation: Skin color: pink, Skin temperature: warm, dry. Disability Alert. Exposure/Environment: A warming method has been applied: A warm blanket has been provided to the patient. 05:20 Reassessment Airway Airway Patent Oxygen No O2 Breathing/Chest Respiratory pattern jb4 Regular Respiratory effort Spontaneous Unlabored Chest inspection Symmetrical Circulation Color [place] Temperature Warm Disability Alert. Secondary Survey: 04:36 HEENT: No deficits noted. Gastrointestinal: No deficits noted. : No deficits noted. jb4 No signs and/or symptoms were reported regarding the genitourinary system. Musculoskeletal: Reports pain in anterior aspect of left shoulder. Assessment: 04:40 General: Appears in no apparent distress. uncomfortable, Behavior is calm, cooperative, jb4 appropriate for age. Pain: Complains of pain in left shoulder Pain does not radiate. Pain currently is 8 out of 10 on a pain scale. Neuro: Level of Consciousness is awake, alert, obeys commands, Oriented to person, place, time, situation. Cardiovascular: Patient's skin is warm and dry. Respiratory: Airway is patent Respiratory effort is even, unlabored, Respiratory pattern is regular, symmetrical. GI: No deficits noted. No signs and/or symptoms were reported involving the gastrointestinal system. : No deficits noted. No signs and/or symptoms were reported regarding the genitourinary system. EENT: No deficits noted. No signs and/or symptoms were reported regarding the EENT system. Musculoskeletal: Circulation, motion, and sensation intact. 05:30 Reassessment: Patient appears in no apparent distress at this time. Patient and/or jb4 family updated on plan of care and expected duration. Pain level reassessed. Patient is alert, oriented x 3, equal unlabored respirations, skin warm/dry/pink. Patient states feeling better. 06:30 Reassessment: Patient appears in no apparent distress at this time. Patient and/or jb4 family updated on plan of care and expected duration. Pain level reassessed. Patient is alert, oriented x 3, equal unlabored respirations, skin warm/dry/pink. Patient states feeling better. 07:00 General: Appears uncomfortable, Behavior is calm, cooperative. Pain: Complains of pain rb1 in anterior aspect of left shoulder Pain currently is 6 out of 10 on a pain scale. Neuro: Level of Consciousness is awake, alert, obeys commands, Oriented to person, place, time, situation. Cardiovascular: Capillary refill < 3 seconds is brisk in bilateral fingers. Respiratory: Airway is patent Respiratory effort is even, unlabored, Respiratory pattern is regular, symmetrical. Derm: Skin is pink, warm \T\ dry. Derm: Wound noted bridge of nose Wound is small laceration noted to the bridge of nose, no bleeding noted at this time. Musculoskeletal: Range of motion: limited in left arm. 07:40 Reassessment: Pt. reports that her friend will be here at 9:00 to take her home. rb1 08:00 Reassessment: Patient appears in no apparent distress at this time. No changes from rb1 previously documented assessment. Pt. is on her telephone. Vital Signs: 04:32 BP 116 / 55; Pulse 96; Resp 16; Temp 98.6(O); Pulse Ox 98% on R/A; Weight 72.57 kg (R); jb4 Height 5 ft. 6 in. (167.64 cm) (R); Pain 8/10; 05:30 BP 117 / 63; Pulse 95; Resp 12; Pulse Ox 93% on R/A; jb4 06:30 BP 136 / 77; Pulse 99; Resp 18; Pulse Ox 100% on R/A; jb4 07:30 BP 101 / 56; Pulse 102; Resp 18; Temp 98.7(O); Pulse Ox 98% on R/A; Pain 6/10; rb1 08:30 BP 113 / 62; Pulse 102; Resp 14; Pulse Ox 98% on R/A; Pain 5/10; rb1 04:32 Body Mass Index 25.82 (72.57 kg, 167.64 cm) jb4 Matt Coma Score: 04:36 Eye Response: spontaneous(4). Verbal Response: oriented(5). Motor Response: obeys jb4 commands(6). Total: 15. 05:30 Eye Response: spontaneous(4). Verbal Response: oriented(5). Motor Response: obeys jb4 commands(6). Total: 15. 06:30 Eye Response: spontaneous(4). Verbal Response: oriented(5). Motor Response: obeys jb4 commands(6). Total: 15. 07:30 Eye Response: spontaneous(4). Verbal Response: oriented(5). Motor Response: obeys rb1 commands(6). Total: 15. Trauma Score (Adult): 04:36 Eye Response: spontaneous(1); Verbal Response: oriented(1); Motor Response: obeys jb4 commands(2); Systolic BP: > 89 mm Hg(4); Respiratory Rate: 10 to 29 per min(4); Matt Score: 15; Trauma Score: 12 05:30 Eye Response: spontaneous(1); Verbal Response: oriented(1); Motor Response: obeys jb4 commands(2); Systolic BP: > 89 mm Hg(4); Respiratory Rate: 10 to 29 per min(4); Matt Score: 15; Trauma Score: 12 06:30 Eye Response: spontaneous(1); Verbal Response: oriented(1); Motor Response: obeys jb4 commands(2); Systolic BP: > 89 mm Hg(4); Respiratory Rate: 10 to 29 per min(4); Matt Score: 15; Trauma Score: 12 07:30 Eye Response: spontaneous(1); Verbal Response: oriented(1); Motor Response: obeys rb1 commands(2); Systolic BP: > 89 mm Hg(4); Respiratory Rate: 10 to 29 per min(4); Matt Score: 15; Trauma Score: 12 ED Course: 04:25 Patient arrived in ED. jb4 04:27 Triage completed. jb4 04:32 Arm band placed on right wrist. jb4 04:34 Faustino Burektt MD is Attending Physician. pkl 04:36 Patient has correct armband on for positive identification. Bed in low position. Call jb4 light in reach. Side rails up X 1. 04:36 Patient maintains SpO2 saturation greater than 95% on room air. jb4 05:19 Chi Cardozo, RN is Primary Nurse. jb4 05:26 CT Head C Spine In Process Unspecified. EDMS 05:26 CT Facial Bones W/O Con In Process Unspecified. EDMS 05:26 XRAY CXR (1 view) In Process Unspecified. EDMS 05:26 Shoulder Left (2 View) XRAY In Process Unspecified. EDMS 06:58 Vish Mejia MD is Referral Physician. pkl 07:30 Thermoregulation: warm blanket given to patient. rb1 08:44 No provider procedures requiring assistance completed. IV discontinued, intact, rb1 bleeding controlled, No redness/swelling at site. Pressure dressing applied. Administered Medications: 05:10 Drug: Versed 2 mg Route: IVP; Site: right wrist; jb4 05:40 Follow up: Response: No adverse reaction; Anxiety decreased jb4 06:13 Drug: Zofran 4 mg Route: IVP; Site: right wrist; jb4 06:40 Follow up: Response: No adverse reaction jb4 06:15 Drug: morphine 2 mg {Note: Rass score of 1.} Route: IVP; Site: right forearm; jb4 06:45 Follow up: Response: No adverse reaction; Pain is decreased; RASS: Alert and Calm (0) jb4 Outcome: 06:59 Discharge ordered by MD. payan 08:44 Patient left the ED. rb1 08:44 Discharged to home via wheelchair, with friend. rb1 08:44 Condition: stable 08:44 Patient's length of stay in the Emergency Department was greater than 2 hours. Testing and transportationPatient's length of stay extended due to 08:44 Discharge instructions given to patient, Instructed on discharge instructions, follow rb1 up and referral plans. medication usage, Demonstrated understanding of instructions, follow-up care, medications, Prescriptions given X 1. Signatures: Dispatcher [employer] EDMS Faustino Burkett MD MD pkl Barber, Rebecca RN RN rb1 Chi Cardozo RN RN jb4 Corrections: (The following items were deleted from the chart) 04:35 04:26 Presenting complaint: EMS states: PT fell and hit her face, and landed on her jb4 left shoulder. jb4 04:35 04:26 Care prior to arrival: None. jb4 jb4 06:47 05:30 Reassessment: Patient appears in no apparent distress at this time. Patient jb4 and/or family updated on plan of care and expected duration. Pain level reassessed. Patient is alert, oriented x 3, equal unlabored respirations, skin warm/dry/pink. jb4 08:51 08:49 Patient left the ED. rb1 rb1
--- NOTE | 2019-05-22 07:02 | EDPHYS ---
Physician Documentation [facility] Name: Brie Chiang Age: 63 yrs Sex: Female : 1955 Arrival Date: 05/22/2019 Time: 04:25 Bed 15 Private MD: ED Physician Faustino Burkett HPI: 05/22 06:06 This 63 yrs old Female presents to ER via EMS with complaints of Fall. pkl 06:06 Details of fall: The patient fell from an upright position, while standing. Onset: The pkl symptoms/episode began/occurred just prior to arrival. Associated injuries: The patient sustained injury to the head, contusion, left shoulder. Historical: - Allergies: 04:32 Codeine; jb4 04:32 Iodine; jb4 04:32 Niacin; jb4 - Home Meds: 04:32 Plavix Oral [Active]; levothyroxine oral [Active]; Isosorbide Mononitrate Oral jb4 [Active]; Furosemide Oral [Active]; Digoxin Oral [Active]; carvedilol Oral [Active]; Glipizide Oral [Active]; ozempic [Active]; - PMHx: 04:32 CHF; Diabetes - IDDM; Myocardial infarction; Hypothyroidism; jb4 - PSHx: 04:32 Appendectomy; Hysterectomy; Cholecystectomy; Heart stents; jb4 - Immunization history:: Adult Immunizations unknown. - Social history:: Smoking status: Patient/guardian denies using tobacco, Patient/guardian denies using alcohol. - Ebola Screening: : No symptoms or risks identified at this time. ROS: 06:06 Eyes: Negative for injury, pain, redness, and discharge, ENT: Negative for injury, pkl pain, and discharge, Neck: Negative for injury, pain, and swelling, Cardiovascular: Negative for chest pain, palpitations, and edema, Respiratory: Negative for shortness of breath, cough, wheezing, and pleuritic chest pain, Abdomen/GI: Negative for abdominal pain, nausea, vomiting, diarrhea, and constipation, Back: Negative for injury and pain, : Negative for injury, bleeding, discharge, and swelling. 06:06 MS/extremity: Positive for injury or acute deformity, pain, tenderness, of the left shoulder. 06:06 Skin: Negative for rash. 06:06 Neuro: Negative for altered mental status. Exam: 06:06 Eyes: Pupils equal round and reactive to light, extra-ocular motions intact. Lids and pkl lashes normal. Conjunctiva and sclera are non-icteric and not injected. Cornea within normal limits. Periorbital areas with no swelling, redness, or edema. 06:06 Head/face: Noted is abrasion(s), that are mild, of the nose. 06:06 Eyes: Exam is negative for acute changes. 06:06 Neck: Exam negative for acute changes. 06:06 Chest/axilla: Exam negative for acute changes. 06:06 Cardiovascular: Rate: normal, Rhythm: regular. 06:06 Respiratory: the patient does not display signs of respiratory distress, Respirations: normal, Breath sounds: are clear throughout. 06:06 Abdomen/GI: Bowel sounds: 06:06 Back: Exam negative for acute changes. 06:06 : Exam negative for acute changes. 06:06 Musculoskeletal/extremity: Extremities: grossly normal except: noted in the left shoulder: pain, tenderness. 06:06 Skin: Exam negative for rash. 06:06 Neuro: Orientation: is normal, Mentation: is normal, Cranial nerves: grossly normal, Motor: is normal. Vital Signs: 04:32 BP 116 / 55; Pulse 96; Resp 16; Temp 98.6(O); Pulse Ox 98% on R/A; Weight 72.57 kg (R); jb4 Height 5 ft. 6 in. (167.64 cm) (R); Pain 8/10; 05:30 BP 117 / 63; Pulse 95; Resp 12; Pulse Ox 93% on R/A; jb4 06:30 BP 136 / 77; Pulse 99; Resp 18; Pulse Ox 100% on R/A; jb4 07:30 BP 101 / 56; Pulse 102; Resp 18; Temp 98.7(O); Pulse Ox 98% on R/A; Pain 6/10; rb1 08:30 BP 113 / 62; Pulse 102; Resp 14; Pulse Ox 98% on R/A; Pain 5/10; rb1 04:32 Body Mass Index 25.82 (72.57 kg, 167.64 cm) jb4 Matt Coma Score: 04:36 Eye Response: spontaneous(4). Verbal Response: oriented(5). Motor Response: obeys jb4 commands(6). Total: 15. 05:30 Eye Response: spontaneous(4). Verbal Response: oriented(5). Motor Response: obeys jb4 commands(6). Total: 15. 06:30 Eye Response: spontaneous(4). Verbal Response: oriented(5). Motor Response: obeys jb4 commands(6). Total: 15. 07:30 Eye Response: spontaneous(4). Verbal Response: oriented(5). Motor Response: obeys rb1 commands(6). Total: 15. Trauma Score (Adult): 04:36 Eye Response: spontaneous(1); Verbal Response: oriented(1); Motor Response: obeys jb4 commands(2); Systolic BP: > 89 mm Hg(4); Respiratory Rate: 10 to 29 per min(4); [place] Score: 15; Trauma Score: 12 05:30 Eye Response: spontaneous(1); Verbal Response: oriented(1); Motor Response: obeys jb4 commands(2); Systolic BP: > 89 mm Hg(4); Respiratory Rate: 10 to 29 per min(4); Matt Score: 15; Trauma Score: 12 06:30 Eye Response: spontaneous(1); Verbal Response: oriented(1); Motor Response: obeys jb4 commands(2); Systolic BP: > 89 mm Hg(4); Respiratory Rate: 10 to 29 per min(4); Matt Score: 15; Trauma Score: 12 07:30 Eye Response: spontaneous(1); Verbal Response: oriented(1); Motor Response: obeys rb1 commands(2); Systolic BP: > 89 mm Hg(4); Respiratory Rate: 10 to 29 per min(4); Matt Score: 15; Trauma Score: 12 MDM: 04:34 Patient medically screened. pkl 06:53 Data reviewed: vital signs, nurses notes, lab test result(s), EKG, radiologic studies, pkl CT scan, plain films. ED course: Discussed Lab. and CT Scan results with patient. Advised to follow with Dr. Mejia ( Ortho ) and Dr Mandel ( ENT ) Patient understood instructions. 05/22 04:37 Order name: Basic Metabolic Panel; Complete Time: 06:05 pkl 05/22 04:37 Order name: LFT's; Complete Time: 06:05 pkl 05/22 04:37 Order name: Magnesium; Complete Time: 06:05 pkl 05/22 04:37 Order name: NT PRO-BNP; Complete Time: 06:05 pkl 05/22 04:36 Order name: CT Head C Spine pkl 05/22 04:36 Order name: CT Facial Bones W/O Con pkl 05/22 04:37 Order name: XRAY CXR (1 view) pkl 05/22 04:37 Order name: Shoulder Left (2 View) XRAY pkl 05/22 04:37 Order name: Troponin (emerg Dept Use Only); Complete Time: 06:05 pkl 05/22 04:37 Order name: EKG; Complete Time: 04:40 pkl 05/22 04:37 Order name: Cardiac monitoring; Complete Time: 05:42 pkl 05/22 04:37 Order name: EKG - Nurse/Tech; Complete Time: 05:42 pkl 05/22 04:37 Order name: IV Saline Lock; Complete Time: 05:24 pkl 05/22 04:37 Order name: Labs collected and sent; Complete Time: 05:24 pkl 05/22 04:37 Order name: O2 Per Protocol; Complete Time: 05:24 pkl 05/22 04:37 Order name: O2 Sat Monitoring; Complete Time: 05:24 pkl 05/22 07:04 Order name: Shoulder Immobilizer; Complete Time: 08:06 pkl Administered Medications: 05:10 Drug: Versed 2 mg Route: IVP; Site: right wrist; jb4 05:40 Follow up: Response: No adverse reaction; Anxiety decreased jb4 06:13 Drug: Zofran 4 mg Route: IVP; Site: right wrist; jb4 06:40 Follow up: Response: No adverse reaction jb4 06:15 Drug: morphine 2 mg {Note: Rass score of 1.} Route: IVP; Site: right forearm; jb4 06:45 Follow up: Response: No adverse reaction; Pain is decreased; RASS: Alert and Calm (0) 4 Disposition: 05/22/19 06:59 Discharged to Home. Impression: Acute fracture of the proximal left humerus. Fracture nasal bones. - Condition is Stable. - Prescriptions for Ultram 50 mg Oral Tablet - take 1 tablet by ORAL route every 8 hours As needed; 20 tablet. - Medication Reconciliation Form, Thank You Letter, Antibiotic Education, Prescription Opioid Use form. - Follow up: Vish Mejia MD; When: 2 - 3 days; Reason: Re-evaluation by your physician. - Problem is new. - Symptoms have improved. Signatures: Dispatcher [employer] EDFaustino Stout MD MD pkl Michelle Cantu, RN RN rb1 Chi Cardozo RN RN jb4 Corrections: (The following items were deleted from the chart) 08:49 06:59 05/22/2019 06:59 Discharged to Home. Impression: Acute fracture of the proximal rb1 left humerus. Fracture nasal bones. Condition is Stable. Forms are Medication Reconciliation Form, Thank You Letter, Antibiotic Education, Prescription Opioid Use. Follow up: Vish Mejia; When: 2 - 3 days; Reason: Re-evaluation by your physician. Problem is new. Symptoms have improved. pkl
--- NOTE | 2019-05-22 08:28 | RAD REPORT ---
EXAM DESCRIPTION: Rupal Single View05/22/2019 5:25 am CLINICAL HISTORY: Chest pain COMPARISON: September 2018 FINDINGS: The lungs appear clear of acute infiltrate. The heart is mildly enlarged. The patient's arm overlies the left chest obscuring detail Minimally displaced fracture involves the left humeral neck
[2019-05-22 08:58] VITALS: BP 101/56; TEMP 98.7; O2SAT 98
--- NOTE | 2019-05-22 10:05 | RAD REPORT ---
EXAM DESCRIPTION: CT - Head C Spine Mpr Wo Con - 05/22/2019 6:51 am CLINICAL HISTORY Fall. COMPARISON: None. TECHNIQUE: Axial [address] imaging of the brain. Axial [address] imaging of the cervical spine. Reformatted coronal and sagittal images obtai den. This examination was performed according to our departmental dose optimization program, which include s automated exposure control, adjustment of the mA and/or kV according to patient size and/or use of iterative reconstruction technique. FINDINGS: CT HEAD: Mild prominence of the ventricles and sulci due to cortical volume loss. There is no intracranial hem orrhage. No mass or midline shift. No acute infarction or hyperdense vessel. Mild decreased white mat ter attenuation due to chronic microvascular ischemic change. There is a 1.1 cm right cerebellar hypodensity due to remote infarction. Left cerebellum and vermis a ppear normal. Midline fourth ventricle. No cerebellar tonsillar ectopia. Normal appearance of the intraorbital contents. Clear paranasal sinuses. Clear mastoid air cells. Int act skull base and calvarium. Normal scalp soft tissues. Image facial bones appear intact. CT CERVICAL SPINE: There is preserved cervical lordotic alignment. There is mild degenerative disc space narrowing at C6 -7 and C7-T1 with mild hypertrophic endplate changes. No prevertebral edema. Mild uncovertebral joint hypertrophy at multiple levels with facet arthropathy. This contributes to severe left C3-4, signifi cant left C4-5 foraminal stenosis. No fracture within the posterior elements. Craniocervical and cerv icothoracic junction alignment is maintained. Intact odontoid process and lateral masses. Mild hypert rophic bony changes along the anterior arch of C1 and tip of the odontoid process. Parapharyngeal soft tissues and mucosal spaces appear normal. Normal epiglottis and vocal folds. Unre markable thyroid. Nonenlarged scattered neck lymph nodes. IMPRESSION: 1. Mild senescent brain changes. Remote right cerebellar infarct. No intracranial acute finding. 2. No acute cervical spine fracture or subluxation. 3. Generalized cervical spondylosis with severe left C3-4 and significant left C4-5 degenerative fora kaz stenosis. Electronically signed by: Beverly Kingston DO 05/22/2019 5:33 AM CDT Due to temporary technical issues with the PACS/Fluency reporting system, reports are being signed by the in house radiologist as a courtesy to ensure prompt reporting. The interpreting radiologist is f ully responsible for the content of the report.
--- NOTE | 2019-05-22 10:12 | RAD REPORT ---
EXAM DESCRIPTION: CT - Facial Bones W/ Mpr - 05/22/2019 6:52 am CLINICAL HISTORY: Fall TECHNIQUE: Axial computed tomography images of the face without intravenous contrast. Sagittal and coronal reformatted images were created and reviewed. This CT exam was performed using one or more of the following dose reduction techniques: automated exposure control, adjustment of the mA and/o r kV according to patient size, and/or use of iterative reconstruction technique. COMPARISON: No relevant prior studies available. FINDINGS: Limitations: None. Bones/joints: There is a nondisplaced fracture of the left nasal bone. Soft tissues: Unremarkable. Orbits: Unremarkable. Sinuses: Unremarkable. No air-fluid levels. IMPRESSION: There is a nondisplaced fracture of the left nasal bone. Electronically signed by: Mikayla Salazar MD 05/22/2019 5:33 AM CDT Due to temporary technical issues with the PACS/Fluency reporting system, reports are being signed by the in house radiologist as a courtesy to ensure prompt reporting. The interpreting radiologist is f ully responsible for the content of the report.
--- NOTE | 2019-05-22 10:16 | RAD REPORT ---
EXAM DESCRIPTION: RAD - Shoulder Left 2 View - 05/22/2019 5:25 am CLINICAL HISTORY: 63 years Female fall COMPARISON: None TECHNIQUE: AP view in internal rotation as well as a Y view of the left shoulder are obtained. FINDINGS: OSSEOUS: There is an acute slightly impacted fracture involving the metadiaphyseal portion of the proximal lef t humerus without displacement or angulation. There is no evidence of subluxation or dislocation. Degenerative changes are noted in the glenohumeral joint with joint space loss and mild marginal oste ophytosis with similar although mild findings of the left acromioclavicular joint. There is no eviden ce of marginal erosive changes to suggest an inflammatory arthritis. SOFT TISSUE: There is no significant soft tissue swelling or mass. No evidence of significant soft tissue calcifications. No radiopaque foreign bodies. IMPRESSION: Acute fracture of the proximal left humerus Remainder of findings as described above. Electronically signed by: Barb Villeda MD 05/22/2019 6:19 AM CDT Due to temporary technical issues with the PACS/Fluency reporting system, reports are being signed by the in house radiologist as a courtesy to ensure prompt reporting. The interpreting radiologist is f ully responsible for the content of the report.
--- NOTE | 2019-05-22 17:36 | EKG ---
Test Date: 2019-05-22 Test Time: 05:34:12 Store Clerk Checker: RUMA MEASUREMENT RESULTS: Intervals: Rate: 98 MI: 158 QRSD: 82 QT: 422 QTc: 538 [place]: P: 70 MI: 158 QRS: 6 T: 15 INTERPRETIVE STATEMENTS: Normal sinus rhythm Minimal voltage criteria for LVH, may be normal variant Nonspecific ST abnormality Prolonged QT Abnormal ECG Compared to ECG 10/12/2018 08:58:42 Left ventricular hypertrophy now present Prolonged QT interval now present Sinus tachycardia no longer present Short MI interval no longer present Possible ischemia no longer present ST (T wave) deviation still present Electronically Signed On 05-22-19 17:33:59 CDT by Rj Roman
== END 2019-05-22 08:49 | disposition home or self-care (01) ==
LOC: ER 04:17
DX: S42.202A Unspecified fracture of upper end of left humerus, initial encounter for closed fracture (principal); S02.2XXA Fracture of nasal bones, initial encounter for closed fracture; W19.XXXA Unspecified fall, initial encounter; Y93.89 Activity, other specified; Y92.9 Unspecified place or not applicable; Z79.01 Long term (current) use of anticoagulants; Z88.5 Allergy status to narcotic agent; Z88.8 Allergy status to other drugs, medicaments and biological substances; Z95.818 Presence of other cardiac implants and grafts; E11.9 Type 2 diabetes mellitus without complications; E03.9 Hypothyroidism, unspecified; I50.9 Heart failure, unspecified; I25.2 Old myocardial infarction
CPT/HCPCS: 93005; 80048; 83735; 80076; 84484; 83880; 70450; 72125; 70486; 76377; 71045; 73030; 96375; 96374; 99284; J2250; J2270; J2405

== ENCOUNTER 2022-05-17 07:47 | Day surgery (SDC) | payer OTHER ==
[2022-05-17 08:21] LABS: Absolute Lymphocytes (CBC) 1.2 K/uL (0.7-4.9); Hematocrit 28.2 % (36.0-45.0); Lymphocytes % 20.4 % (15.3-44.8); MCV 87.1 fL (80-100); MPV 7.5 fL (7.6-11.3); RBC Red Blood Cell Count 3.23 M/uL (3.86-4.86)
[2022-05-17 08:38] VITALS: TEMP 98.8; O2SAT 100; BMI 19.0
[2022-05-17 08:51] LABS: Protime INR 0.97
[2022-05-17] MEDS ORDERED: NA CHLORIDE 0.9% 500 ML ONE (09:04)
[2022-05-17 09:07] LABS: Blood Morphology Comment NOT SEEN (NOT SEEN); Platelet Estimate ADEQ
[2022-05-17] MEDS ORDERED: NALOXONE 0.4 MG/ML VIAL ONE (09:27)
[2022-05-17] MEDS ORDERED: FLUMAZENIL 0.1 MG/ML (5 mL VIAL) IV ONE (09:27)
[2022-05-17] MEDS ORDERED: MIDAZOLAM HCL 2 MG/2 ML INJ ONE (09:27)
[2022-05-17] MEDS ORDERED: FENTANYL CITR 100 MCG/2 ML ONE (09:27)
[2022-05-17 11:42] VITALS: BP 154/72
== END 2022-05-17 10:01 | disposition home or self-care (01) ==
LOC: DS 07:47
PROVIDERS: ATTEND Internal Medicine Hematology & Oncology
DX: D64.9 Anemia, unspecified (principal); D50.0 Iron deficiency anemia secondary to blood loss (chronic); Z88.6 Allergy status to analgesic agent; Z91.09 Other allergy status, other than to drugs and biological substances; D59.10 Autoimmune hemolytic anemia, unspecified; Z53.20 Procedure and treatment not carried out because of patient's decision for unspecified reasons
CPT/HCPCS: 85025; 36415; 85610; 85044; 85730; J2250; J3010; J7040; J2310

== ENCOUNTER 2023-07-05 08:59 | Day surgery (SDC) | payer OTHER ==
[2023-06-22 12:17] LABS: Absolute Lymphocytes (CBC) 0.8 K/uL (0.7-4.9); Lymphocytes % 19.9 % (15.3-44.8); MCV 89.5 fL (80-100); MPV 7.7 fL (7.6-11.3); Platelets 196 thou/uL (152-406); RBC Red Blood Cell Count 3.12 M/uL (3.86-4.86)
[2023-06-22 12:18] LABS: Protime INR 1.08
--- NOTE | 2023-06-22 12:41 | RAD REPORT ---
EXAM DESCRIPTION: RAD - Chest Pa And Lat (2 Views) - 06/22/2023 12:01 pm CLINICAL HISTORY: pre op Chest pain. COMPARISON: Chest Pa And Lat (2 Views) dated 09/07/2022; Chest Single View dated 05/22/2019; Chest Pa And Lat (2 Views) dated 10/14/2018; Chest Pa And Lat (2 Views) dated 10/13/2018; Gastric Emptying Study dated 03/31/2023 FINDINGS: Mild opacity is present in the left lung base with small left pleural effusion which may i ndicate infiltrate/pneumonia. The lungs are emphysematous. The heart is moderately enlarged. No displ aced fractures. IMPRESSION: Small left pleural effusion and opacity in the left base may represent pneumonia.
--- NOTE | 2023-06-23 17:01 | EKG ---
Test Date: 2023-06-22 Test Time: 11:31:44 Marine Gear Keeper: KATIE MEASUREMENT RESULTS: Intervals: Rate: 100 ME: 164 QRSD: 88 QT: 378 QTc: 487 [place]: P: 57 ME: 164 QRS: 23 T: 48 INTERPRETIVE STATEMENTS: Normal sinus rhythm Possible Left atrial enlargement Nonspecific T wave abnormality Prolonged QT Abnormal ECG Compared to ECG 05/22/2019 05:34:12 T-wave abnormality now present Left ventricular hypertrophy no longer present ST (T wave) deviation no longer present Electronically Signed On 06-23-23 16:56:52 CDT by Rodrigue Galvez
[2023-07-05] MEDS ORDERED: NA CHLORIDE 0.9% 1,000 ML ONE (09:28)
[2023-07-05] MEDS ORDERED: LIDOCAINE 1% MPF 5 ML VIAL ONE (09:38)
[2023-07-05] MEDS ORDERED: propofoL 200 MG/20 ML VIAL IV ONE (09:38)
[2023-07-05] MEDS ORDERED: FENTANYL CITR 100 MCG/2 ML ONE (09:38)
[2023-07-05] MEDS ORDERED: CEFAZOLIN SODIUM 1 GM/VIAL ONE (10:20)
[2023-07-05] MEDS ORDERED: dexAMETHasone 10 MG/ML VIAL ONE (10:43)
[2023-07-05] MEDS ORDERED: ONDANSETRON 4 MG/2 ML VIAL ONE (10:43)
[2023-07-05] MEDS ORDERED: EPHEDRINE SULF 50 MG/ML VIAL ONE (10:46)
--- NOTE | 2023-07-05 11:11 | RAD REPORT ---
EXAM DESCRIPTION: RAD - Urethrocystogrphy Retrograde - 07/05/2023 11:05 am CLINICAL HISTORY: RT STENT COMPARISON: No comparisons FINDINGS: Total fluoro time: .21 minutes
[2023-07-05] MEDS ORDERED: PHENAZOPYRIDINE 100MG TAB PO ONE (11:50)
[2023-07-05] MEDS ORDERED: TRAMADOL 37.5mg/APAP 325mg PER TAB PO ONE (11:50)
[2023-07-05 13:03] VITALS: BP 127/60; TEMP 97.3; O2SAT 95
--- NOTE | 2023-07-06 08:11 | OP ---
Surgeon: MAKAYLA GUZMAN Preoperative Diagnoses: 1.Right flank pain. 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 Postoperative Diagnoses: 1.Tortuosity of the right ureter. 2.Blunting of the right lower pole and upper pole calyces. Principal Procedures: 1.Cystoscopy with right retrograde pyelography. 2.Right ureteral stent placement. Indication For Procedure: Ms. Chiang is a 67-year-old woman who presented to the Urology Clinic having been seen and evaluated via MRCP because of persistent right flank pain. Since no findings had been identified of a GI origin and since there was evidence of a questionable cyst seen in the right kidn ey, she was sent for urologic evaluation. I reviewed the images in detail, and instead of a standard partially exophytic or endophytic simple renal cyst, this cystic area noted appeared to be potential ly excluded from the lower pole papilla, possibly an excluded calyx versus a forniceal rupture or jesus alberto yceal diverticulum. Because she has severe iodine allergy and was reticent to proceed with IV contra st imaging, we discussed operative evaluation via retrograde pyelography. Description Of Procedure: The patient was consented in the preoperative holding area before being tr ansferred to the operative suite where general anesthesia was induced. She was given IV antimicrobia l prophylaxis, and pneumo boots were provided for DVT prophylaxis. She was placed in the lithotomy p osition, padded and secured to the table appropriately. Her genitalia were prepped with Hibiclens an d she was draped in standard fashion. The case was begun using a 22-Nauruan rigid cystoscope to trave rse the urethra and enter the bladder with relative ease. There was some mild urethral mucosal prola pse noted. Upon entry into the bladder, I decompressed the fluid and urine, and I surveyed the [facility] er in its entirety. The ureteral orifices were orthotopic in location, and there were no papillary m ucosal lesions, foreign bodies, or stones noted throughout. I thus cannulated the ureteral orifice u sing the 5-Nauruan ureteral access catheter and performed a retrograde pyelogram. Right retrograde pyelography: Using a 70:30 mixture of Omnipaque and saline, contrast was injected via the lumen of the 5-Nauruan ur eteral access catheter and did propagate up the distal into the mid ureter before entering the renal pelvis without signs of UPJ obstruction. There was some tortuosity and indeed slightly nodular appea rosina of the proximal and mid ureter. The calyces were without filling defect, but the upper pole an d more specifically the lower pole calyx of the right kidney were blunted. As a result, given the slightly abnormal finding seen and her pain, I elected to pass a Sensor wire i nto her upper pole calyx and then removed the 5-Nauruan ureteral access catheter instead passing a 6-F rench x 24 cm double-J ureteral stent over the wire, coiling it within the upper pole calyx as eviden minor fluoroscopically. An additional coil was formed cystoscopically in her bladder. I then decompre ssed her bladder of fluid and urine and removed the cystoscope. She was taken out of the lithotomy p osition, awakened from general anesthesia, transferred to a stretcher, and then transferred to the re covery room in good condition. Complications: None. Discharge Disposition: She should follow up in the Urology Clinic electively within the next few wee ks to see if she has any significant improvement in her symptomatology of the right flank and mid axi llary pain associated with the presence of the stent. If so, more definitive assessment of her upper tract may be required with ureteroscopy. JEVON/WESLEY Voice ID: [id number] Report ID: [id number]
== END 2023-07-05 13:47 | disposition home or self-care (01) ==
LOC: OR 08:59
PROVIDERS: ATTEND Urology
PROC: 0T768DZ Dilation of Right Ureter with Intraluminal Device, Via Natural or Artificial Opening Endoscopic (ICD-10-PCS; principal; 2023-07-05 10:30)
DX: N13.8 Other obstructive and reflux uropathy (principal); N20.0 Calculus of kidney; I25.10 Atherosclerotic heart disease of native coronary artery without angina pectoris; Z95.5 Presence of coronary angioplasty implant and graft; I25.2 Old myocardial infarction; Z88.6 Allergy status to analgesic agent; Z91.09 Other allergy status, other than to drugs and biological substances
CPT/HCPCS: 93005; 87088; 85025; 87086; 80048; 36415; 85610; 82947 ×2; 87077; 87186; 71046; 74450; 51610; 52332; J2704; J2001; J3010; J1100; J2405; J7030; J0690

== ENCOUNTER 2023-12-18 11:47 | Emergency (ER) | payer OTHER ==
[2023-12-18 12:30] LABS: Absolute Basophils 0.1 K/uL (0-0.5); Absolute Eosinophils 0.1 K/uL (0-0.5); Absolute Lymphocytes (CBC) 0.7 K/uL (0.7-4.9); Absolute Monocytes 0.5 K/uL (0.1-1.3); Absolute Neutrophil 8.8 K/uL (1.8-8.0); Eosinophils % 0.8 % (0-4.4); Hematocrit 15.5 % (36.0-45.0); Lymphocytes % 7.1 % (15.3-44.8); MCH 29.7 pg (27.0-35.0); MCHC 34.1 g/dL (32.0-36.0); MCV 87.1 fL (80-100); MPV 6.8 fL (7.6-11.3); Monocytes % 4.5 % (3.3-12.3); Neutrophils % 86.6 % (41.7-73.7); Platelets 471 thou/uL (152-406); RBC Red Blood Cell Count 1.78 M/uL (3.86-4.86); Red Cell Distribution Width 17.5 % (12.1-15.2)
[2023-12-18 12:39] LABS: PT Prothrombin Time 13.7 SECONDS (9.5-12.5); PTT, Activated Partial Thromb 31.1 SECONDS (24.3-36.9); Protime INR 1.25
[2023-12-18 12:46] LABS: Albumin 2.5 g/dL (3.4-5.0); Albumin/Globulin Ratio 0.6 (1.1-1.8); Bilirubin Total 3.4 mg/dL (0.2-1.0); Globulin 4.3 g/dL (2.3-3.5); Hemoglobin 5.3 g/dL (12.0-15.0); Protein, Total 6.8 g/dL (6.4-8.2)
[2023-12-18 12:48] LABS: Troponin High Sensitivity 195.8 pg/mL (<58.9)
--- NOTE | 2023-12-18 13:05 | RAD REPORT ---
EXAM DESCRIPTION: CT - Head C Spine Cap Wo Con - 12/18/2023 12:44 pm CLINICAL HISTORY: Trauma, head and neck injury. Chest, abdomen and pelvis pain. fall, head, rib pain, known liver/spleen pathology COMPARISON: Cholangiogram dated 01/11/2023; Abdomen Pelvis W Contrast dated 08/30/2023 TECHNIQUE: CT head without contrast. CT cervical spine without contrast with coronal and sagittal reformatted images. CT chest, abdomen and pelvis with coronal and sagittal reformatted images of the spine. All CT scans are performed using dose optimization technique as appropriate and may include automated exposure control or mA/KV adjustment according to patient size. FINDINGS: CT HEAD WITHOUT CONTRAST: No intracranial hemorrhage, hydrocephalus or extra-axial fluid collection. No acute large vascular te rritory infarct. Chronic small vessel ischemic changes. The paranasal sinuses and mastoids are clear. The calvarium is intact. CT CERVICAL SPINE WITHOUT CONTRAST: No fracture or subluxation. Multilevel degenerative changes are present in the spine. Varying degree s of neural foraminal narrowing noted. This is at worst moderate at the C4-5 and C6-7 levels bilatera lly. The prevertebral soft tissues are normal in thickness.Carotid artery calcifications. CT CHEST, ABDOMEN, PELVIS: Thorax: Chest Wall: No abnormal mass Lungs: No acute abnormality. Pleura: No effusions or pneumothorax. Cinthya/Mediastinum: No lymphadenopathy. Aorta/Pulmonary Arteries: Unremarkable Heart: Normal size. Multi-vessel coronary disease. Abdomen/Pelvis: Liver: Trace pneumobilia. No focal liver lesions. Biliary: Cholecystectomy . Pneumobilia and extrahepatic biliary duct dilatation which may be related to prior sphincterotomy. The finding is unchanged from prior. Stomach: No significant focal abnormality. Duodenum: No significant focal abnormality. Pancreas: No significant abnormality. Spleen: Splenomegaly Adrenal: No suspicious lesions. Kidney/ureter: New mild right-sided hydronephrosis despite the presence of the right ureteral stent. Left-sided pelviectasis. No stones identified. Retroperitoneum: No retroperitoneal adenopathy. Vascular: No aneurysm. Atherosclerosis. Bowel: No significant focal abnormality. Peritoneum: No ascites or free air. Bladder: Right ureteral stent with tip coiled in the bladder. Reproductive: No adnexal masses. Hysterectomy . Bones: No acute fracture. Multilevel degenerative changes are present in the spine. Other: n/a IMPRESSION: Negative for acute traumatic findings. Mild right-sided hydronephrosis despite the presence of the right ureteral stent. Cannot exclude sten t dysfunction.
--- NOTE | 2023-12-18 13:08 | ER ---
Nurse's Notes [facility] Name: Brie Chiang Age: 68 yrs Sex: Female : 1955 Arrival Date: 12/18/2023 Time: 11:47 Bed 8 Private MD: Diagnosis: Critical anemia, subendothelial myocardial infarction/NSTEMI, generalized weakness, Gilbert's disease Presentation: 12/17 11:53 Chief complaint: EMS states: ALLEGED FALL TWO WK AGO WITH TIME SINCE SPENT ON FLOOR. bp Coronavirus screen: At this time, the client does not indicate any symptoms associated with coronavirus-19. Ebola Screen: No symptoms or risks identified at this time. Initial Sepsis Screen: Does the patient meet any 2 criteria? No. Patient's initial sepsis screen is negative. Does the patient have a suspected source of infection? No. Patient's initial sepsis screen is negative. Risk Assessment: Do you want to hurt yourself or someone else? Patient reports no desire to harm self or others. Onset of symptoms is unknown. Care prior to arrival: Medication(s) given: Normal saline infusion, 500 mL, IV initiated. 20 GA, in the right forearm. 11:53 Method Of Arrival: EMS: [facility] bp 11:53 Acuity: SUSSY 3 bp Triage Assessment: 11:54 General: Appears distressed, unkempt, Behavior is cooperative, appropriate for age, bp anxious. Pain: Denies pain. Derm: Skin is jaundiced. Historical: - Allergies: 11:54 Codeine; bp 11:54 Iodine; bp 11:54 Niacin; bp - PMHx: 11:54 CHF; Diabetes - IDDM; Hypothyroidism; Myocardial infarction; bp - Immunization history:: Adult Immunizations up to date. - Social history:: Smoking status: Patient denies any tobacco usage or history of. Screenin:55 [facility] ED Fall Risk Assessment (Adult) History of falling in the last 3 months, bp including since admission Yes- physiologic fall (2 pts) Confusion or Disorientation No (0 pts) Intoxicated or Sedated No (0 pts) Impaired Gait No (0 pts) Mobility Assist Device Used No (0 pt) Altered Elimination Yes (1 pt) Score/Fall Risk Level 3 or more points = High Risk Oriented to surroundings, Maintained a safe environment. Abuse screen: Denies threats or abuse. Denies injuries from another. Nutritional screening: No deficits noted. Tuberculosis screening: No symptoms or risk factors identified. Assessment: 11:55 General: SEE TRIAGE NOTE. bp 14:06 Reassessment: No changes from previously documented assessment. Patient and/or family ll1 updated on plan of care and expected duration. Pain level reassessed. 16:00 Reassessment: [facility] TRANSFUSION STARTED. bp 17:02 Reassessment: REPORT TO [facility] RN FOR [facility] TRANSF[facility]. bp 17:12 Reassessment: EMS AT B/S FOR TRANSPORT. bp Vital Signs: 11:53 BP 105 / 53; Pulse 89; Resp 16; Temp 98; Pulse Ox 100% ; bp 13:00 BP 111 / 49; Pulse 90; Resp 15; Pulse Ox 100% ; bp 14:00 BP 105 / 53; Pulse 88; Resp 16; Pulse Ox 100% ; bp 15:00 BP 103 / 55; Pulse 85; Resp 16; Pulse Ox 99% ; bp 16:00 BP 105 / 46; Pulse 88; Resp 15; Temp 97.9; Pulse Ox 100% ; bp 17:02 BP 110 / 49; Pulse 84; Resp 15; Pulse Ox 100% ; bp ED Course: 11:50 Patient arrived in ED. eb 11:53 Ricardo Clifford, DELTA is Primary Nurse. bp 11:54 Triage completed. bp 11:55 Elder Morley MD is Attending Physician. sp3 11:55 Arm band placed on. bp 11:55 Patient has correct armband on for positive identification. Provided Education on: N/A. bp 11:55 Maintain EMS IV. Dressing intact. Good blood return noted. Site clean \T\ dry. Gauge \T\ bp site: 20 GA R FA. 12:00 Provided Education on: Blood Transfusion. Client placed on continuous cardiac and pulse bp oximetry monitoring. NIBP monitoring applied. satellite project site monitor on. Consent for blood and/or blood product transfusion explained by staff, signed by patient. 12:11 Troponin High Sensitivity Sent. bp 12:11 Blood Culture Adult (2) Sent. bp 12:11 CBC with Diff Sent. bp 12:11 CMP Sent. bp 12:11 Lactate w/ 2H reflex if indic. Sent. bp 12:11 Protime (+inr) Sent. bp 12:11 Ptt, Activated Sent. bp 12:38 AMMONIA Sent. bp 12:38 Blood Culture Adult (2) Sent. bp 12:38 Troponin High Sensitivity Sent. bp 12:38 CMP Sent. bp 12:38 CBC with Diff Sent. bp 12:38 Lactate w/ 2H reflex if indic. Sent. bp 12:38 Protime (+inr) Sent. bp 12:38 Ptt, Activated Sent. bp 12:46 CT Traumagram (Head C Spine CAP wo con) In Process Unspecified. EDMS 13:24 initiated a transfer with Dorina Marquez Rn from the [facility]. eb 14:06 PO fluids given. ensure. ll1 16:24 administrative approval given by Dorina Marquez Rn/ patient has been accepted to [facility] room D275/ Dr. Samantha Boyle has accepted the patient in transfer/ report to be called to [phone]. 17:02 No provider procedures requiring assistance completed. Patient transferred, IV remains bp in place. Administered Medications: 14:01 Drug: Potassium Chloride PO 40 mEq PO once Route: PO; bp 16:56 Follow up: Response: No adverse reaction bp Medication: 11:55 VIS not applicable for this client. bp Outcome: 13:08 ER care complete, transfer ordered by . sp3 17:02 Transferred by ground EMS to [facility], bp 17:02 Condition: stable 17:02 Instructed on the need for transfer, 17:18 Patient left the ED. ld1 Signatures: Dispatcher [employer] EDMS Ricardo Clifford, RN Juliette Philippe Lynsay, RN RN 1 Agata Cox RN RN ld1 Elder Morley MD MD sp3
--- NOTE | 2023-12-18 13:09 | EDPHYS ---
Physician Documentation [facility] Name: Brie Chiang Age: 68 yrs Sex: Female : 1955 Arrival Date: 12/18/2023 Time: 11:47 Bed 8 Private MD: ED Physician Elder Morley HPI: 12/17 12:07 This 68 yrs old Female presents to ER via EMS with complaints of weakness, vomiting, sp3 multiple falls. 12:12 68-year-old female with a history of CHF, diabetes, MT, fatty liver, [place]'s sp3 disease, known spleen pathology, presents to the ED with chief complaint generalized weakness, vomiting for several days and 4-5 falls including head injury and possible "rib fracture" the patient states that she may have. She denies any specific chest pain, shortness of breath, fever, or any other signs or symptoms at this time. Remainder of ROS is negative.. Historical: - Allergies: 11:54 Codeine; bp 11:54 Iodine; bp 11:54 Niacin; bp - PMHx: 11:54 CHF; Diabetes - IDDM; Hypothyroidism; Myocardial infarction; bp - Immunization history:: Adult Immunizations up to date. - Social history:: Smoking status: Patient denies any tobacco usage or history of. ROS: 12:15 Constitutional: Negative for fever, chills, and weight loss, Eyes: Negative for injury, sp3 pain, redness, and discharge, ENT: Negative for injury, pain, and discharge, Neck: Negative for injury, pain, and swelling, Cardiovascular: Negative for chest pain, palpitations, and edema, Respiratory: Negative for shortness of breath, cough, wheezing, and pleuritic chest pain, Back: Negative for injury and pain, MS/Extremity: Negative for injury and deformity, Psych: Negative for depression, anxiety, suicide ideation, homicidal ideation, and hallucinations, Allergy/Immunology: Negative for hives, rash, and allergies, Endocrine: Negative for neck swelling, polydipsia, polyuria, polyphagia, and marked weight changes, 12:15 All other systems are negative, Exam: 12:15 Constitutional: This is a well developed, well nourished patient who is awake, alert, sp3 and in no acute distress. Head/Face: Normocephalic, atraumatic. Eyes: Pupils equal round and reactive to light, extra-ocular motions intact. Lids and lashes normal. Conjunctiva and sclera are non-icteric and not injected. Cornea within normal limits. Periorbital areas with no swelling, redness, or edema. Neck: Trachea midline, no thyromegaly or masses palpated, and no cervical lymphadenopathy. Supple, full range of motion without nuchal rigidity, or vertebral point tenderness. No Meningismus. Cardiovascular: Regular rate and rhythm with a normal S1 and S2. No gallops, murmurs, or rubs. Normal PMI, no JVD. No pulse deficits. Respiratory: Lungs have equal breath sounds bilaterally, clear to auscultation and percussion. No rales, rhonchi or wheezes noted. No increased work of breathing, no retractions or nasal flaring. Abdomen/GI: Soft, non-tender, with normal bowel sounds. No distension or tympany. No guarding or rebound. No evidence of tenderness throughout. MS/ Extremity: Pulses equal, no cyanosis. Neurovascular intact. Full, normal range of motion. Neuro: Awake and alert, GCS 15, oriented to person, place, time, and situation. Cranial nerves II-XII grossly intact. Motor strength 5/5 in all extremities. Sensory grossly intact. Cerebellar exam normal. Normal gait. Psych: Awake, alert, with orientation to person, place and time. Behavior, mood, and affect are within normal limits. 12:15 Chest/axilla: Positive scleral icterus, bilateral chest tenderness on the ribs. No crepitus or subcu air noted. Patient is notably jaundiced which she states is baseline given her Gilbert's disease. Abdomen is soft nontender and benign.. Vital Signs: 11:53 BP 105 / 53; Pulse 89; Resp 16; Temp 98; Pulse Ox 100% ; bp 13:00 BP 111 / 49; Pulse 90; Resp 15; Pulse Ox 100% ; bp 14:00 BP 105 / 53; Pulse 88; Resp 16; Pulse Ox 100% ; bp 15:00 BP 103 / 55; Pulse 85; Resp 16; Pulse Ox 99% ; bp 16:00 BP 105 / 46; Pulse 88; Resp 15; Temp 97.9; Pulse Ox 100% ; bp 17:02 BP 110 / 49; Pulse 84; Resp 15; Pulse Ox 100% ; bp MDM: 11:58 Patient medically screened. sp3 12:17 Data reviewed: vital signs, nurses notes, old medical records, lab test result(s), EKG, sp3 radiologic studies. ED course: 68-year-old female with Gilbert's disease, and other PMH now with jaundice, vomiting, dehydration and possible injuries from a fall including head and chest. Will obtain extensive workup including EKG, full laboratory panel, CT scans of the head, C-spine, chest abdomen pelvis. Patient also has chronic renal disease so we will skip contrast for now. Disposition probable admission/transfer once pathology is finalized. Continue IV fluids.. 13:00 ED course: Patient has elevated T. bili consistent with Gilbert's disease. Hemoglobin sp3 of 5.5 and troponin elevated. I believe patient has had severe anemia inducing diffuse cardiac injury and not a primary cardiac event. EKG demonstrates normal sinus rhythm at 83 bpm with prolonged QT at 533, normal axis, nonspecific diffuse ST's ST changes without evidence of acute ischemia. I believe the weakness and multiple falls are all due to low hemoglobin. Patient denies any melena and do not believe she has an ongoing GI bleed however GI losses could be a potential etiology. At this time we will transfuse 2 units PRBCs and transfer patient to appropriate facility since we are at capacity and administration has instructed us to transfer all patients. The latter part of this plan will be performed once all imaging is reviewed.. 14:17 ED course: Discussed with accepting physician who has graciously accepted.. sp3 12/17 12:01 Order name: Blood Culture Adult (2) sp3 12/17 12:01 Order name: CBC with Diff; Complete Time: 14:15 sp3 12/17 12:01 Order name: CMP; Complete Time: 12:57 sp3 12/17 12:01 Order name: Lactate w/ 2H reflex if indic.; Complete Time: 12:57 sp3 12/17 12:01 Order name: Protime (+inr); Complete Time: 12:57 sp3 12/17 12:01 Order name: Ptt, Activated; Complete Time: 12:57 sp3 12/17 12:01 Order name: Troponin High Sensitivity; Complete Time: 12:57 sp3 12/17 12:12 Order name: AMMONIA; Complete Time: 12:57 bp 12/17 12:55 Order name: CBC Smear Scan; Complete Time: 14:15 EDMS 12/17 12:58 Order name: Type And Screen sp3 12/17 13:52 Order name: Packed RBCs (Additional Unit) EDMI 12/17 12:01 Order name: CT Traumagram (Head C Spine CAP wo con); Complete Time: 13:06 sp3 12/17 12:01 Order name: Cardiac monitoring; Complete Time: 12:11 sp3 12/17 12:01 Order name: EKG - Nurse/Tech; Complete Time: 12:11 sp3 12/17 12:01 Order name: IV Saline Lock - Large Bore; Complete Time: 12:11 sp3 12/17 12:01 Order name: Labs collected and sent; Complete Time: 12:11 sp3 12/17 12:01 Order name: O2 Sat Monitoring; Complete Time: 12:11 sp3 12/17 12:01 Order name: Vital Signs; Complete Time: 12:11 sp3 12/17 12:58 Order name: Transfuse: 2 units PRBC; Complete Time: 16:07 3 12/17 12:58 Order name: PO challenge: PO OK (pt was asking); Complete Time: 13:03 sp3 Administered Medications: 14:01 Drug: Potassium Chloride PO 40 mEq PO once Route: PO; bp 16:56 Follow up: Response: No adverse reaction bp Disposition Summary: 12/18/23 13:08 Transfer Ordered Notes: Transfer Location: [facility] sp3 Reason: Higher level of care sp3 Condition: Stable sp3 Problem: an acute exacerbation sp3 Symptoms: have worsened sp3 Accepting Physician: [facility] TBD(12/18/23 17:18) ld1 Diagnosis - Critical anemia, subendothelial myocardial infarction/NSTEMI, generalized weakness, sp3 Gilbert's disease Forms: - Medication Reconciliation Form sp3 - SBAR form sp3 Signatures: Dispatcher [employer] Ricardo Lucas RN Agata Saxena RN RN ld1 Elder Morley MD MD sp3 Corrections: (The following items were deleted from the chart) 12:01 12:01 Head C Spine Cap Wo Con+CT.RAD.BRZ ordered. EDMS EDMS 12:12 12:12 AMMONIA+C.LAB.BRZ ordered. EDMS EDMS 12:59 12:59 TYPE AND SCREEN+BB.LAB.BRZ ordered. EDMS EDMS 13:02 13:00 ED course: Patient has elevated T. bili consistent with Gilbert's disease. sp3 Hemoglobin of 5.5 and troponin elevated. I believe patient has had severe anemia inducing diffuse cardiac injury and not a primary cardiac event. EKG demonstrates normal sinus rhythm at 83 bpm with prolonged QT at 533, normal axis, nonspecific diffuse ST's ST changes without evidence of acute ischemia. I believe the weakness and multiple falls are all due to low hemoglobin. Patient denies any melena and do not believe she has an ongoing GI bleed however GI losses could be a potential etiology. At this time we will transfuse 2 units PRBCs and transfer patient to appropriate facility since we are at capacity and administration has instructed us to transfer all patients.. sp3 13:51 12:59 PACKED RBC LEUKORED+BB.LAB.BRZ ordered. EDMS EDMS 13:51 13:01 ABO/RH typing ordered. EDMS EDMS 13:51 13:01 Antibody Screen ordered. EDMS EDMS 17:18 13:08 [facility] TBD sp3 ld1
[2023-12-18 13:32] LABS: Anisocytosis 2+; Blood Morphology Comment NOTED (NOT SEEN); Ovalocytes 1+; Platelet Estimate INCR; White Blood Cell Scan OK (OK)
[2023-12-18] MEDS ORDERED: POTASSIUM CL SA 10 MEQ TAB PO ONE (13:43)
[2023-12-18] MEDS ORDERED: NA CHLORIDE 0.9% 250 ML ONE (15:40)
[2023-12-18 21:50] VITALS: BP 110/49; TEMP 97.9; O2SAT 100
--- NOTE | 2023-12-19 13:41 | EKG ---
Test Date: 2023-12-18 Test Time: 12:10:37 Automatic Buffer: CAITLIN MEASUREMENT RESULTS: Intervals: Rate: 83 NV: 158 QRSD: 88 QT: 454 QTc: 533 [employer]: P: 73 NV: 158 QRS: 13 T: 29 INTERPRETIVE STATEMENTS: Normal sinus rhythm ST & T wave abnormality, consider lateral ischemia Prolonged QT Abnormal ECG Compared to ECG 12/18/2023 12:09:53 Fusion complex(es) no longer present ST (T wave) deviation still present Possible ischemia still present Electronically Signed On 12-19-23 13:36:48 CDT by Rodrigue Galvez
--- NOTE | 2023-12-19 13:41 | EKG ---
Test Date: 2023-12-18 Test Time: 12:09:53 Preflight Inspector: CAITLIN MEASUREMENT RESULTS: Intervals: Rate: 84 [place]: 158 QRSD: 88 QT: 458 QTc: 541 [place]: P: 75 [place]: 158 QRS: 19 T: 12 INTERPRETIVE STATEMENTS: Poor data quality, interpretation may be adversely affected Sinus rhythm with fusion complexes ST & T wave abnormality, consider inferolateral ischemia Prolonged QT Abnormal ECG Compared to ECG 06/22/2023 11:31:44 Fusion complex(es) now present ST (T wave) deviation now present Possible ischemia now present T-wave abnormality no longer present Electronically Signed On 12-19-23 13:36:51 CDT by Rodrigue Galvez
== END 2023-12-18 17:18 | disposition short-term general hospital (02) ==
LOC: ER 11:47
PROC: 30233N1 Transfusion of Nonautologous Red Blood Cells into Peripheral Vein, Percutaneous Approach (ICD-10-PCS; principal; 2023-12-18)
DX: D64.9 Anemia, unspecified (principal); I21.4 Non-ST elevation (NSTEMI) myocardial infarction; E80.4 Gilbert syndrome; I25.2 Old myocardial infarction; I50.9 Heart failure, unspecified; E11.9 Type 2 diabetes mellitus without complications; Z88.5 Allergy status to narcotic agent; Z88.8 Allergy status to other drugs, medicaments and biological substances; Z91.048 Other nonmedicinal substance allergy status
CPT/HCPCS: 93005 ×2; 87040 ×2; 85025; 36415; 82140; 86900; 86850; 85610; 86901; 83605; 85730; 86920 ×2; 84484; 80053; 70450; 71250; 72125; 99285; 36430; P9016; J7050

== ENCOUNTER 2024-03-15 07:45 | Day surgery (SDC) | payer OTHER ==
[2024-02-29 15:02] LABS: Absolute Basophils 0.1 K/uL (0-0.5); Absolute Eosinophils 0.1 K/uL (0-0.5); Absolute Lymphocytes (CBC) 0.8 K/uL (0.7-4.9); Absolute Monocytes 0.3 K/uL (0.1-1.3); Absolute Neutrophil 2.9 K/uL (1.8-8.0); Basophils % 2.3 % (0-1.3); Eosinophils % 2.8 % (0-4.4); Hematocrit 31.4 % (36.0-45.0); Hemoglobin 10.3 g/dL (12.0-15.0); Lymphocytes % 19.3 % (15.3-44.8); MCH 30.7 pg (27.0-35.0); MCHC 32.9 g/dL (32.0-36.0); MCV 93.3 fL (80-100); MPV 8.1 fL (7.6-11.3); Monocytes % 7.4 % (3.3-12.3); Neutrophils % 68.2 % (41.7-73.7); Platelets 156 thou/uL (152-406); RBC Red Blood Cell Count 3.37 M/uL (3.86-4.86)
[2024-02-29 15:05] LABS: PT Prothrombin Time 13.1 SECONDS (9.5-12.5); Protime INR 1.2
[2024-02-29 15:09] LABS: Anion Gap 7.9 mEq/L (5.0-15.0); Potassium 3.9 mEq/L (3.5-5.1)
--- NOTE | 2024-02-29 21:33 | RAD REPORT ---
EXAM DESCRIPTION: [facility] Views[facility]02/29/2024 2:42 pm CLINICAL HISTORY: pre op. Hypertension. History of cardiac stent COMPARISON: Chest Pa And Lat (2 Views) dated 08/17/2023; Chest Pa And Lat (2 Views) dated 06/22/2023; Chest Pa And Lat (2 Views) dated 09/07/2022; Chest Single View dated 05/22/2019 TECHNIQUE: Portable AP view of the chest. FINDINGS: The lungs are clear. Diffuse hyperlucency and hyperinflation suggesting COPD. No pneumotho rax or effusion. The cardiomediastinal contours are unremarkable. IMPRESSION: No acute cardiopulmonary process.
[2024-03-15] MEDS: NA CHLORIDE 0.9% 1,000 ML ONE (08:10)
[2024-03-15] MEDS ORDERED: propofoL 200 MG/20 ML VIAL IV ONE (09:52)
[2024-03-15] MEDS ORDERED: FENTANYL CITR 100 MCG/2 ML ONE (09:52)
[2024-03-15] MEDS: CEFAZOLIN SODIUM 1 GM/VIAL ONE (10:52)
[2024-03-15] MEDS ORDERED: LIDOCAINE 1% MPF 5 ML VIAL ONE (11:00)
[2024-03-15] MEDS: CEFTRIAXONE 1000 MG/VIAL ONE (11:09)
[2024-03-15] MEDS ORDERED: dexAMETHasone 10 MG/ML VIAL ONE (11:17)
[2024-03-15] MEDS ORDERED: ONDANSETRON 4 MG/2 ML VIAL ONE (11:17)
[2024-03-15] MEDS ORDERED: TRAMADOL 37.5mg/APAP 325mg PER TAB PO ONE (11:45)
[2024-03-15] MEDS ORDERED: PHENAZOPYRIDINE 100MG TAB PO ONE (11:45)
--- NOTE | 2024-03-15 11:47 | RAD REPORT ---
EXAM DESCRIPTION: RAD - Urethrocystogrphy Retrograde - 03/15/2024 11:40 am CLINICAL HISTORY: RT STENT COMPARISON: Urethrocystogrphy Retrograde dated 07/05/2023 FINDINGS: Total fluoro time: 24 seconds
[2024-03-15 12:25] VITALS: O2SAT 98
--- NOTE | 2024-03-15 12:44 | OP ---
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 2.Right flank pain. 3.Urinary tract infection. 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 2.Right flank pain. 3.Cystitis. 4.Partially encrusted right ureteral stent. Principal Procedures: 1.Cystoscopy. 2.Right retrograde pyelography. 3.Right ureteroscopy with renal pelvic washout/irrigation. 4.Right ureteral stent exchange with 6-Angolan x 24 cm double-J ureteral stent. Indication For Procedure: The patient is a 68-year-old woman who presented with right flank pain and a history of nephrolithiasis. She underwent evaluation where no obstructing stone was noted, but th e presence of bilateral UPJ obstruction was observed. MAG3 Lasix renography indicated the presence o f obstruction, and the patient underwent a right ureteral stent placement because that side was causi ng her pain. She had relief of the pain and was scheduled to complete pyeloplasty, but suffered a he alth challenge in the interim that resulted in significant debilitation and weakness. As a result, t he pyeloplasty was placed on hold, and since the stent had been in place for more than 6 months, at t his point, a stent exchange was planned. Of note, during preoperative testing, UTI was observed. Procedure In Detail: The patient was consented in the preoperative holding area before being transfe rred to the operative suite where general anesthesia was induced. She was given Ancef 1 g IV antimic robial prophylaxis, and pneumo boots were provided for DVT prophylaxis. She was placed in the lithot good position, padded and secured to the table appropriately. Her genitalia were prepped with Hibicle ns and she was draped in standard fashion. The case was begun using a 22-Angolan rigid cystoscope to traverse the urethra and into the bladder. Of note, there was slight urethral meatal mucosal prolaps e. Upon entry into the bladder, it was decompressed of fluid and urine and surveyed. There was evid ence of chronic cystitis throughout. The right ureteral stent was noted to emanate from the right ur eteral orifice and was mildly encrusted. I thus grasped the tip of the stent and delivered it to the meatus leaving the proximal end of the stent within the renal pelvis putatively, and then I passed a Sensor wire successfully via the stent into the kidney. I then removed the stent over the wire, susan ving the wire in place, and then passed a dual-lumen catheter into her bladder and into the distal ur eter before performing a retrograde pyelography study. Right retrograde pyelography: Using a 70:30 mixture of Omnipaque and saline, contrast was injected v ia the second lumen of the dual-lumen catheter and did propagate up the distal ureter until it reache d a point of delayed transit in the distal ureter. It eventually surpassed this point of delayed tra nsit entering the proximal ureter where another point of delayed transit was encountered. By this po int, I had injected the entirety of the 10 cc, and the ureter was somewhat dilated, but no significan t contrast entered beyond the proximal ureter into the renal pelvis. So, I injected an additional hipolito charli of contrast until the contrast surpassed the point of UPJ obstruction and entered the renal pelvi s which was moderately dilated. Because of the multiple points of functional obstruction observed on the retrograde study, I then passed a Bentson guidewire via the second lumen of the dual-lumen yuriy ter and into the collecting system as observed fluoroscopically. I also requested 1 g of ceftriaxone be provided for enhanced antimicrobial prophylaxis given the chronic cystitis observed despite initi ating antimicrobial therapy yesterday in preparation for the procedure today. I then removed the veronica l-lumen catheter leaving the wires in place and backloaded the flexible ureteroscope over the Bentson guidewire. I was then able to navigate the Bentson guidewire all the way up the distal into the mid and proximal ureter before entering the proximal ureter and reaching a point of palpable obstruction trying to advance the scope over the wire. As a result, I used spot fluoroscopic imagery to confirm that the ureteroscope did get stopped at the UPJ. So I removed the wire and used pressurized saline irrigation to survey that area. No significant strictured disease was noted, and with the pressuriz ed irrigation and advancement of the scope, I was able to easily gain access into the renal pelvis an d calices. At this point, I noted the urine in the kidney was just slightly particulate in appearanc e; so I aspirated some of that material from the kidney and then gently irrigated it slowly with 10 c c of normal saline irrigating and aspirating repetitively trying to remove all of the debris from wit hin the calices that was observed as I surveyed ureteroscopically and pyeloscopically through each of the calices of the kidney. Once I had removed majority of the debris that was present, I then surve yed down into the proximal ureter and observed the ureteropelvic junction. Again, no specific area o f stricture narrowing was observed; so I had advanced the scope down into the mid proximal down into the mid and distal ureter before exiting her ureteral orifice with no other signs of stricture diseas e or stone burden. I then backloaded the cystoscope over the indwelling safety wire and placed a 6-F rench x 24 cm double-J stent with a coil observed fluoroscopically in the renal pelvis of the right k idney and 1 cystoscopically formed in her bladder. I then decompressed her bladder of fluid and urin e and then attempted to irrigate the bladder via the cystoscope to remove a lot of the stent incrusta tion debris present on the distal coil of the stent. This was limited in success because her bladder did seem to lack sufficient tone and would not empty well enough to flush out the debris. As a resu lt, I removed the cystoscope and utilized an 18-Angolan catheter passed into her bladder with 5 cc of sterile water in the balloon. I then irrigated her bladder using a 60 cc catheter tip syringe to try to remove all of that remaining debris before ultimately removing the catheter after decompressing h er bladder, and taking her out of the lithotomy position. She was then transferred to a stretcher, a fter being awakened from general anesthesia, before being transferred to the recovery room in good co ndition. Complications: None. Discharge Disposition: She should complete the antimicrobial therapy prescribed preoperatively and p miguelito to resume her Eliquis as long as her urine is not significantly bloody, likely tomorrow or Saturd ay. Subsequent followup should be planned in about 3 to 5 months, hopefully at a time when she is le ss debilitated and better recovered from her recent medical event. At that point, planning and consi deration will be made to proceed with pyeloplasty for her known crossing vessel UPJ obstruction on th e right side. Recognizing she also has anatomic crossing vessel on the left, as long as she is not h aving significant pain there, that may not need to be performed or can be performed at a delayed fashion at some point in the future, if necessary. JEVON/WESLEY Voice ID: [id number] Report ID: [id number]
[2024-03-15] MEDS ORDERED: NA CHLORIDE 0.9% 1,000 ML ONE (13:14)
[2024-03-15 15:12] VITALS: BP 111/47; TEMP 97.4
== END 2024-03-15 15:06 | disposition home or self-care (01) ==
LOC: OR 07:45
PROVIDERS: ATTEND Urology
PROC: 0TJB8ZZ Inspection of Bladder, Via Natural or Artificial Opening Endoscopic (ICD-10-PCS; 2024-03-15)
PROC: 0T768DZ Dilation of Right Ureter with Intraluminal Device, Via Natural or Artificial Opening Endoscopic (ICD-10-PCS; principal; 2024-03-15 09:30)
DX: N13.5 Crossing vessel and stricture of ureter without hydronephrosis (principal); N13.30 Unspecified hydronephrosis; Q62.39 Other obstructive defects of renal pelvis and ureter; R10.9 Unspecified abdominal pain; N30.90 Cystitis, unspecified without hematuria; Z88.5 Allergy status to narcotic agent; Z88.8 Allergy status to other drugs, medicaments and biological substances
CPT/HCPCS: 36415; 51610; 71046; 74450; 80048; 82947; 85025; 85610; 85730; 87077; 87086; 87088; 87186; J0690; J0696; J1100; J2001; J2405; J2704; J3010; J7030

== ENCOUNTER 2024-11-02 07:07 | Day surgery (SDC) | payer OTHER ==
[2024-10-30 09:48] LABS: PT Prothrombin Time 13.8 SECONDS (9.4-12.5); PTT, Activated Partial Thromb 37.1 SECONDS (24.3-36.9); Protime INR 1.32
[2024-10-30 09:52] LABS: Anion Gap 6.9 mEq/L (5.0-15.0); Potassium 3.9 mEq/L (3.5-5.1)
--- NOTE | 2024-10-30 12:40 | EKG ---
Test Date: 2024-10-30 Test Time: 10:24:27 [employer]: ALDA MEASUREMENT RESULTS: Intervals: Rate: 89 AR: 170 QRSD: 80 QT: 396 QTc: 481 [place]: P: 71 AR: 170 QRS: 42 T: 48 INTERPRETIVE STATEMENTS: Sinus rhythm with occasional premature ventricular complexes Possible Left atrial enlargement Borderline ECG Compared to ECG 12/18/2023 12:10:37 Ventricular premature complex(es) now present ST (T wave) deviation no longer present Possible ischemia no longer present Prolonged QT interval no longer present Electronically Signed On 10-30-24 12:40:19 OILER HELPER by Omar Sheets
[2024-11-02] MEDS ORDERED: NA CHLORIDE 0.9% 1,000 ML ONE (07:31)
[2024-11-02] MEDS ORDERED: EPINEPHRINE 1 MG/ML VIAL ONE (07:45)
[2024-11-02] MEDS ORDERED: OXYMETAZOLINE HCL 0.05% 30ML NAS ONE (07:45)
[2024-11-02] MEDS ORDERED: LIDOCAINE HCL/EPINEPHRINE 20 ML MDV ONE (07:45)
[2024-11-02] MEDS ORDERED: ROCURONIUM 50 MG/5 ML VIAL IV ONE (08:07)
[2024-11-02] MEDS ORDERED: propofoL 200 MG/20 ML VIAL IV ONE (08:07)
[2024-11-02] MEDS ORDERED: FENTANYL CITR 100 MCG/2 ML ONE (08:07)
[2024-11-02] MEDS ORDERED: LIDOCAINE 1% MPF 5 ML VIAL ONE (08:07)
[2024-11-02] MEDS ORDERED: MIDAZOLAM HCL 2 MG/2 ML INJ ONE (08:07)
[2024-11-02] MEDS ORDERED: ONDANSETRON 4 MG/2 ML VIAL ONE (08:12)
[2024-11-02] MEDS ORDERED: dexAMETHasone 10 MG/ML VIAL ONE (08:13)
[2024-11-02] MEDS ORDERED: NEOSTIGMINE 1 MG/ML -10 ML VIAL ONE (08:45)
[2024-11-02] MEDS ORDERED: GLYCOPYRROLATE 0.2 MG/ML SYR ONE (08:45)
[2024-11-02] MEDS ORDERED: Phenylephrine HCl 10 MG/ML 1 ML VIAL ONE (08:56)
--- NOTE | 2024-11-02 08:57 | P.OP ---
System Operator: NONE,NONE Preoperative diagnosis: Left vocal fold paralysis, dysphonia Postoperative diagnosis: Same Primary procedure: Direct laryngoscopy with telescope and therapeutic injection to left vocal Anesthesia: General Estimated blood loss: None Specimen: None Findings: Left vocal fold atrophy Operative Technique: The patient was brought to the operating and placed under general anesthesia via endotracheal tube. After appropriate timeout, the rubber tooth protector was applied to the upper dentition. The [employer] laryngoscope fitted with a 15 degree rigid telescope was used to perform a direct laryngoscopy and the laryngoscope was placed in suspension with optimal visualization of the left true vocal fold. There were no mucosal lesions noted within the larynx. Photodocumentation was obtained. The Prolaryn Plus was fitted with the transoral injection needle. Under direct visualization with aid of telescope for magnification, the needle was inserted into the lateral border of the left true vocal fold and material was injected in order to augment and medialized the vocal fold in order to improve voice function. A total of 0.85 mL was injected and photodocumentation of the augmentation was obtained following the procedure. Blood loss was minimal. Gentle pressure was applied to the injection site using a small pledget on a laryngeal alligator. No significant bleeding was noted. The laryngoscope was released from suspension and removed. The tooth protector was removed. Following the procedure the patient was returned to care of anesthesia for awakening extubation in the operating room which proceeded without difficulty.
[2024-11-02] MEDS ORDERED: EPHEDRINE SULF 50 MG/ML VIAL ONE (09:01)
[2024-11-02] MEDS ORDERED: EPINEPHrine 1 MG/10 ML SYR ONE (09:01)
[2024-11-02] MEDS: ACETAMINOPHEN 500 MG TAB ONE (10:20)
[2024-11-02 10:56] VITALS: BP 136/66; TEMP 97.7
[2024-11-02 11:43] VITALS: O2SAT 95
== END 2024-11-02 10:50 | disposition home or self-care (01) ==
LOC: OR 07:07
PROVIDERS: ATTEND Otolaryngology
PROC: 3E0F8GC Introduction of Other Therapeutic Substance into Respiratory Tract, Via Natural or Artificial Opening Endoscopic (ICD-10-PCS; principal; 2024-11-02 08:00)
DX: J38.01 Paralysis of vocal cords and larynx, unilateral (principal); R49.0 Dysphonia; Z87.891 Personal history of nicotine dependence
CPT/HCPCS: 93005; 80048; 36415; 85610; 82947 ×2; 85730; 31571; J2704; J2710; J2003; J2371; J2250; J3010; J1100; J0171; J2405; J7030; L8607